=== PATIENT | female | born 1965 ===

== ENCOUNTER 2017-02-06 13:17 | Emergency (ER) | payer OTHER, MEDICARE ==
[2017-02-06 13:17] VITALS: BMI 28.3
[2017-02-06 13:21] VITALS: BP 123/67; PULSE 118; RESP 18; TEMP 99; O2SAT 98
--- NOTE | 2017-02-06 13:44 | ED PDOC ---
HPI: General Adult Time Seen by Provider: 02/06/17 13:42 Chief Complaint (Nursing): Abdominal Pain Chief Complaint (Provider): abdominal pain History Per: Patient History/Exam Limitations: no limitations Additional Complaint(s): 51yo female complaining of severe abdominal pain, nausea and diarrhea since this morning. She has chills but is unsure of fever. No vomit. Past Medical History Reviewed: Historical Data, Nursing Documentation, Vital Signs Vital Signs: Last Vital Signs Temp 99 F 02/06/17 13:19 Pulse 118 H 02/06/17 13:19 Resp 18 02/06/17 13:19 BP 123/67 02/06/17 13:19 Pulse Ox 98 02/06/17 18:41 - Medical History PMH: Anxiety, Arthritis, Asthma, COPD, Depression, Fractures, Osteoporosis Denies: Diabetes, Hepatitis, HIV, HTN, Seizures, Sexually Transmitted Disease - Surgical History Surgical History: Cholecystectomy, Tonsillectomy - Family History Family History: States: Unknown Family Hx - Immunization History Hx Tetanus Toxoid Vaccination: No Hx Influenza Vaccination: Yes Hx Pneumococcal Vaccination: No - Home Medications Home Medications: Ambulatory Orders Medication Instructions Recorded Calcium Carbonate [Calcium] 600 mg PO DAILY 05/25/16 DULoxetine [Cymbalta] 60 mg PO DAILY 05/25/16 Esomeprazole Magnesium [Nexium] 40 mg PO DAILY 05/25/16 oxyCODONE/Acetaminophen [Percocet 1 tab PO Q6 PRN 05/25/16 5/325 mg Tab] Fluticasone Nasal [Flonase] 11/30/16 Ibandronate [Boniva] 11/30/16 clonazePAM [Klonopin] 1 tab PO BID 11/30/16 Benztropine [Cogentin] 1 mg PO BID PRN #60 tab 12/04/16 Divalproex [Depakote DR] 500 mg PO BID #60 tcp 12/04/16 risperiDONE [RisperDAL Tab] 2 mg PO BID #60 tab 12/04/16 traZODone [Desyrel] 50 mg PO HS #30 tab 12/04/16 Ibuprofen [Motrin] 600 mg PO Q6H PRN #20 tab 02/06/17 - Allergies Allergies/Adverse Reactions: Allergies Allergy/AdvReac Type Severity Reaction Status Date / Time No Known Allergies Allergy Verified 11/30/16 13:19 Review of Systems ROS Statement: Except As Marked, All Systems Reviewed And Found Negative Constitutional: Positive for: Chills. Negative for: Fever Gastrointestinal: Positive for: Nausea, Abdominal Pain, Diarrhea. Negative for : Vomiting Physical Exam - Reviewed Nursing Documentation Reviewed: Yes Vital Signs Reviewed: Yes - Physical Exam Appears: Positive for: Well, Non-toxic, No Acute Distress Head Exam: Positive for: ATRAUMATIC, NORMAL INSPECTION, NORMOCEPHALIC Skin: Positive for: Warm, Dry Eye Exam: Positive for: EOMI, PERRL Cardiovascular/Chest: Positive for: Regular Rate, Rhythm Respiratory: Positive for: Normal Breath Sounds. Negative for: Rales, Rhonchi, Wheezing Gastrointestinal/Abdominal: Positive for: Soft, Tenderness (right lower quadrant mild tenderness). Negative for: Guarding, Rebound Extremity: Positive for: Normal ROM Neurologic/Psych: Positive for: Alert, Oriented - Laboratory Results Result Diagrams: 02/06/17 14:20 02/06/17 14:00 - ECG O2 Sat by Pulse Oximetry: 98 (RA) Pulse Ox Interpretation: Normal Medical Decision Making Medical Decision Makin CT abd/pel w/, Labs, morphine, zofran, Iv fluids ordered. Disposition - Clinical Impression Clinical Impression: Abdominal pain in female - Patient ED Disposition Is Patient to be Admitted: Transfer of Care - Disposition Referrals: [facility] [Outside] Disposition: Transfer of Care Disposition Time: 17:00 Condition: STABLE Prescriptions: Ibuprofen [Motrin] 600 mg PO Q6H PRN #20 tab PRN Reason: Pain, Moderate (4-7) Instructions: Abdominal Pain (ED) Patient Signed Over To: Scarlett Nava Additional Comments - Additional Comments Additional Comments: Scribe Attestation: Documented by Leroy Belle acting as a scribe for Bernard Tobin MD. Provider Scribe Attestation: All medical record entries made by the Scribe were at my direction and personally dictated by me. I have reviewed the chart and agree that the record accurately reflects my personal performance of the history, physical exam, medical decision making, and the department course for this patient. I have also personally directed, reviewed, and agree with the discharge instructions and disposition.
[2017-02-06] MEDS ORDERED: Sodium Chloride 0.9% 1,000 ML IV STA (13:47)
[2017-02-06 14:46] LABS: BASO % 0.1 % (0.0-2.0); EOS # 0.1 K/uL (0.0-0.7); EOS % 1.3 % (0.0-4.0); HEMATOCRIT 44.7 % (34.0-47.0); LYMPH # 0.7 K/uL (1.0-4.3); LYMPH % 6.6 % (20.0-40.0); MEAN CORPUSCULAR HEMOGLOBIN 28.6 pg (27.0-31.0); MEAN CORPUSCULAR HGB CONC 33.6 g/dL (33.0-37.0); MEAN PLATELET VOLUME 8.4 fl (7.2-11.7); MONO # 0.4 K/uL (0.0-0.8); NRBC % 0.1 % (0.0-0.0); PLATELET COUNT 298 K/uL (130-400); RED CELL DISTRIBUTION WIDTH 13.8 % (11.5-14.5); WHITE BLOOD COUNT 10.2 K/uL (4.8-10.8)
[2017-02-06 14:57] LABS: ALB/GLOB RATIO 1.1 (1.0-2.1); ALKALINE PHOSPHATASE 89 U/L (38-126); ALT/SGPT 39 U/L (9-52); AST/SGOT 35 U/L (14-36); BILIRUBIN,TOTAL 0.9 mg/dl (0.2-1.3); BLOOD UREA NITROGEN 24 mg/dl (7-17); CALCIUM 9.1 mg/dL (8.4-10.2); CARBON DIOXIDE 24 mmol/L (22-30); CHLORIDE 106 mmol/L (98-107); GFR AFRICAN-AMERICAN > 60; GLUCOSE,RANDOM 106 mg/dL (65-105); POTASSIUM 3.9 MMOL/L (3.6-5.0); SODIUM 144 mmol/l (132-148); TOTAL PROTEIN 7.9 G/DL (6.3-8.2)
[2017-02-06 15:41] LABS: BASOPHIL 1 % (0-2); EOSINOPHIL 3 % (0-7); NEUTROPHIL 83 % (42-75); REACTIVE LYMPHOCYTES 3 % (0-0); TOTAL CELLS COUNTED 100
[2017-02-06] MEDS ORDERED: Iohexol 350 MG/100 ML VIAL ONE (16:07)
[2017-02-06] MEDS ORDERED: Sodium Chloride 0.9% 50 ML IV ONE (16:08)
--- NOTE | 2017-02-06 16:56 | CT ---
PROCEDURE: CT Abdomen and Pelvis with contrast HISTORY: RLQ abd pain COMPARISON: None. TECHNIQUE: Contrast dose: 95 cc Omnipaque 350. Radiation dose: Total exam DLP = 885.42 mGy-cm. This CT exam was performed using one or more of the following dose reduction techniques: Automated exposure control, adjustment of the mA and/or kV according to patient size, and/or use of iterative reconstruction technique. FINDINGS: LOWER THORAX: Unremarkable. LIVER: Unremarkable. No gross lesion or ductal dilatation. GALLBLADDER AND BILE DUCTS: Status post cholecystectomy. No abnormality is seen in the gallbladder fossa. PANCREAS: Unremarkable. No gross lesion or ductal dilatation. SPLEEN: Unremarkable. ADRENALS: Mildly enlarged right adrenal gland perhaps small adenoma. Unremarkable left adrenal. KIDNEYS AND URETERS: Unremarkable. No hydronephrosis. No solid mass. VASCULATURE: Unremarkable. No aortic aneurysm. BOWEL: Unremarkable. No obstruction. No gross mural thickening. Diverticulosis without an acute inflammatory component or other associated pathologic process. APPENDIX: Normal appendix. PERITONEUM: Unremarkable. No free fluid. No free air. LYMPH NODES: Unremarkable. No enlarged lymph nodes. BLADDER: Unremarkable. REPRODUCTIVE: Unremarkable. Incidental finding(s): Postoperative findings likely related to tubal ligation. BONES: No acute fracture. OTHER FINDINGS: None. IMPRESSION: No acute findings related to/accounting for the clinical presentation. Additional benign and/or incidental findings described above.
--- NOTE | 2017-02-06 17:38 | ED PDOC ---
- Laboratory Results Result Diagrams: 02/06/17 14:20 02/06/17 14:00 - ECG O2 Sat by Pulse Oximetry: 98 (RA) Pulse Ox Interpretation: Normal - CT Scan/US CT A/P w/PO and IV contrast Other Rad Studies (CT/US): Read By Radiologist, Radiology Report Reviewed Other Rad Interpretation: see MDM Medical Decision Making Medical Decision Makin:00 Patient endorsed over to me by Bernard Tobin MD, pending CT report, reevaluation and final disposition. 17:35 CT reports reviewed. Pt with h/o bilateral oopherectomies. FINDINGS: LOWER THORAX: Unremarkable. LIVER: Unremarkable. No gross lesion or ductal dilatation. GALLBLADDER AND BILE DUCTS: Status post cholecystectomy. No abnormality is seen in the gallbladder fossa. PANCREAS: Unremarkable. No gross lesion or ductal dilatation. SPLEEN: Unremarkable. ADRENALS: Mildly enlarged right adrenal gland perhaps small adenoma. Unremarkable left adrenal. KIDNEYS AND URETERS: Unremarkable. No hydronephrosis. No solid mass. VASCULATURE: Unremarkable. No aortic aneurysm. BOWEL: Unremarkable. No obstruction. No gross mural thickening. Diverticulosis without an acute inflammatory component or other associated pathologic process. APPENDIX: Normal appendix. PERITONEUM: Unremarkable. No free fluid. No free air. LYMPH NODES: Unremarkable. No enlarged lymph nodes. BLADDER: Unremarkable. REPRODUCTIVE: Unremarkable. Incidental finding(s): Postoperative findings likely related to tubal ligation. BONES: No acute fracture. OTHER FINDINGS: None. IMPRESSION: No acute findings related to/accounting for the clinical presentation. Additional benign and/or incidental findings described above. 17:37 Upon provider reevaluation patient is feeling better, is medically stable, and requires no further treatment in the ED at this time. Patient will be discharged home with Rx for Motrin 600mg. Counseling was provided and all questions were answered regarding results of ED workup, diagnosis and need for follow up with the referred clinic. There is agreement to discharge plan. Return if symptoms persist or worsen. Clinical Impression: abdominal pain in female Scribe Attestation: Documented by Ellie Cabello, acting as a scribe for Scarlett Nava MD. Provider Scribe Attestation: All medical record entries made by the Scribe were at my direction and personally dictated by me. I have reviewed the chart and agree that the record accurately reflects my personal performance of the history, physical exam, medical decision making, and the department course for this patient. I have also personally directed, reviewed, and agree with the discharge instructions and disposition. Disposition - Clinical Impression Clinical Impression: Abdominal pain in female - POA Present On Arrival: None - Disposition Referrals: [facility] [Outside] Disposition: Routine/Home Disposition Time: 17:37 Condition: STABLE Prescriptions: Ibuprofen [Motrin] 600 mg PO Q6H PRN #20 tab PRN Reason: Pain, Moderate (4-7) Instructions: Abdominal Pain (ED)
== END 2017-02-06 19:30 | disposition home or self-care (01) ==
LOC: H.ER 13:17
DX: R10.31 Right lower quadrant pain (principal); R19.7 Diarrhea, unspecified; R11.0 Nausea; F41.9 Anxiety disorder, unspecified; J44.9 Chronic obstructive pulmonary disease, unspecified
CPT/HCPCS: 74177; 80053; 81025; 85025; 96374; 96375; 99282; J1885; J2270; J2405; J7040; Q9967

== ENCOUNTER 2017-07-13 12:26 | Inpatient (IN) | payer MEDICAID, OTHER ==
[2017-07-13 12:26] VITALS: BMI 28.3
[2017-07-13] MEDS ORDERED: Sodium Chloride 0.9% 1,000 ML IV STA (13:13)
--- NOTE | 2017-07-13 13:17 | ED PDOC ---
HPI: General Adult Time Seen by Provider: 07/13/17 12:54 Chief Complaint (Nursing): Abdominal Pain Chief Complaint (Provider): Head injury History Per: Patient History/Exam Limitations: no limitations Onset/Duration Of Symptoms: Days (2 days) Current Symptoms Are (Timing): Still Present Additional Complaint(s): Pt. states she was working and fell. Unclear why. Hurt the left side of her head. Has pain there since. Saw her pcp yesterday and told to come to the ED. Here today. Feels l eye blurry. No numbness, tingles, neck pain. No fever, cough, chest pain, dyspnea. Has low back pain, no incontinence or constipation. Weakness all over. No abd pain. 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 States she has been falling frequently. Speech is off per pt. NIHSS Stroke Scale - Date/Time Evaluation Performed Date Performed: 07/13/17 Time Performed: 16:06 When Was NIHSS Performed: Re-evaluation - How Severe is the Stroke Level of Consciousness: 0=Alert LOC to Questions: 0=Both comments correct LOC to commands: 0=Obeys both correctly Best Gaze: 0=Normal Visual: 0=No visual loss Facial: 0=Normal Motor Arm - Left: 0=No drift Motor Arm - Right: 0=No drift Motor Leg - Left: 0=No drift Motor Leg - Right: 0=No drift Limb Ataxia: 0=Absent Sensory: 0=Normal Best Language: 0=No aphasia Dysarthia: 1=Mild to moderate slurring Extinction & Inattention (Neglect): 0=Normal, no object Score: 1 rTPA Inclusion/Exclusion - Refusal of Treatment Patient Refused Treatment: No - Inclusion Criteria for Altepase Patient is 18 years or Older: Yes The Clinical Diagnosis of Ischemic Stroke That is Causing a Potentially Disabling Neurological Deficit: No Time of Onset is Well Established to be Less Than 270 Minute Before Treatment Would Begin: No Risk/Benefit Discussed With Patient/Family Member Present: No Past Medical History Reviewed: Nursing Documentation, Vital Signs Vital Signs: Last Vital Signs Temp 98.7 F 07/13/17 12:31 Pulse 103 H 07/13/17 12:31 Resp 16 07/13/17 12:31 BP 164/58 H 07/13/17 12:31 Pulse Ox 97 07/13/17 16:08 - Medical History PMH: Anxiety, Arthritis, Asthma, COPD, Depression, Fractures, Osteoporosis Denies: Diabetes, Hepatitis, HIV, HTN, Seizures, Sexually Transmitted Disease Other PMH: frontal lobe tumor - Surgical History Surgical History: Cholecystectomy, Tonsillectomy - Family History Family History: States: Unknown Family Hx - Social History Current smoker - smoking cessation education provided: No Alcohol: None Drugs: Denies - Immunization History Hx Tetanus Toxoid Vaccination: No Hx Influenza Vaccination: Yes Hx Pneumococcal Vaccination: No - Home Medications Home Medications: Ambulatory Orders Medication Instructions Recorded Calcium Carbonate [Calcium] 600 mg PO DAILY 05/25/16 DULoxetine [Cymbalta] 60 mg PO DAILY 05/25/16 Esomeprazole Magnesium [Nexium] 40 mg PO DAILY 05/25/16 oxyCODONE/Acetaminophen [Percocet 1 tab PO Q6 PRN 05/25/16 5/325 mg Tab] Fluticasone Nasal [Flonase] 11/30/16 Ibandronate [Boniva] 11/30/16 clonazePAM [Klonopin] 1 tab PO BID 11/30/16 Benztropine [Cogentin] 1 mg PO BID PRN #60 tab 12/04/16 Divalproex [Depakote DR] 500 mg PO BID #60 tcp 12/04/16 risperiDONE [RisperDAL Tab] 2 mg PO BID #60 tab 12/04/16 traZODone [Desyrel] 50 mg PO HS #30 tab 12/04/16 Ibuprofen [Motrin] 600 mg PO Q6H PRN #20 tab 02/06/17 - Allergies Allergies/Adverse Reactions: Allergies Allergy/AdvReac Type Severity Reaction Status Date / Time No Known Allergies Allergy Verified 11/30/16 13:19 Review of Systems ROS Statement: Except As Marked, All Systems Reviewed And Found Negative Musculoskeletal: Positive for: Back Pain Neurological: Positive for: Weakness, Change in Speech, Headache Physical Exam - Reviewed Nursing Documentation Reviewed: Yes Vital Signs Reviewed: Yes - Physical Exam Appears: Positive for: No Acute Distress Head Exam: Positive for: NORMOCEPHALIC. Negative for: ATRAUMATIC (tender L frontal forehead mild; no hematoma) Skin: Positive for: Normal Color, Warm, DRY Eye Exam: Positive for: EOMI, Normal appearance, PERRL ENT: Positive for: Normal ENT Inspection. Negative for: Nasal Congestion, Pharyngeal Erythema Neck: Positive for: Normal, Painless ROM, Supple Cardiovascular/Chest: Positive for: Regular Rate, Rhythm Respiratory: Positive for: CNT, Normal Breath Sounds Gastrointestinal/Abdominal: Positive for: Normal Exam, Bowel Sounds, Soft. Negative for: Tenderness Back: Positive for: Normal Inspection. Negative for: L CVA Tenderness, R CVA Tenderness Extremity: Negative for: Normal ROM (pain to lower back on movement of legs.), Tenderness (no leg tenderness), Pedal Edema, Calf Tenderness, Swelling Neurologic/Psych: Positive for: Alert, finance and administration manager II-XII, Oriented, Motor/Sensory Deficits (4/5 strength to all extremities), Other (athralgia of speech and slurring off and on.). Negative for: Facial Droop - Laboratory Results Result Diagrams: 07/13/17 13:40 07/13/17 13:40 Interpretation Of Abn Labs: no acute - ECG ECG: Positive for: Interpreted By Me, Viewed By Me ECG Rhythm: Positive for: Normal QRS, Normal ST Segment, Sinus Rhythm O2 Sat by Pulse Oximetry: 97 Pulse Ox Interpretation: Normal - Radiology X-Ray: Read By Radiologist X-Ray Interpretation: No Acute Disease - CT Scan/US head, face, neck Other Rad Studies (CT/US): Read By Radiologist Other Rad Interpretation: no acute - Progress ED Course And Treament: 1606: Stable. AAOx3. Pain free. Spoke with Gonzalo. Will admit for concussion. Pt. speaking more fluently. Spoke with Dr. Nguyen. Will consult. No additional tx at this time. Disposition - Clinical Impression Clinical Impression: Concussion, Head injury - Patient ED Disposition Is Patient to be Admitted: Yes Counseled Patient/Family Regarding: Studies Performed, Diagnosis - Disposition Disposition Time: 16:12 Condition: FAIR - Pt Status Changed To: Hospital Disposition Of: Observation - POA Present On Arrival: Falls Or Trauma
[2017-07-13 14:06] LABS: BASO % 0.5 % (0.0-2.0); EOS # 0.2 K/uL (0.0-0.7); EOS % 2.1 % (0.0-4.0); LYMPH # 2.6 K/uL (1.0-4.3); LYMPH % 29.7 % (20.0-40.0); MEAN CELL VOLUME 87.1 fl (81.0-99.0); MEAN CORPUSCULAR HEMOGLOBIN 28.8 pg (27.0-31.0); MEAN CORPUSCULAR HGB CONC 33.1 g/dL (33.0-37.0); MEAN PLATELET VOLUME 8.4 fl (7.2-11.7); MONO # 0.5 K/uL (0.0-0.8); MONO % 6.1 % (0.0-10.0); NEUT # 5.5 K/uL (1.8-7.0); NEUT % 61.6 % (50.0-75.0); RED CELL DISTRIBUTION WIDTH 13.8 % (11.5-14.5); WHITE BLOOD COUNT 8.9 K/uL (4.8-10.8)
[2017-07-13 14:20] LABS: ALB/GLOB RATIO 1.3 (1.0-2.1); ALKALINE PHOSPHATASE 74 U/L (38-126); ALT/SGPT 28 U/L (9-52); AST/SGOT 25 U/L (14-36); BILIRUBIN,TOTAL 0.4 mg/dl (0.2-1.3); BLOOD UREA NITROGEN 18 mg/dl (7-17); CALCIUM 9.2 mg/dL (8.4-10.2); CARBON DIOXIDE 26 mmol/L (22-30); CHLORIDE 105 mmol/L (98-107); GFR AFRICAN-AMERICAN > 60; GLUCOSE,RANDOM 89 mg/dL (65-105); POTASSIUM 3.9 MMOL/L (3.6-5.0); SODIUM 139 mmol/l (132-148); TOTAL PROTEIN 6.9 G/DL (6.3-8.2)
[2017-07-13 14:22] LABS: PARTIAL THROMBOPLASTIN TIME 34.1 Seconds (25.6-37.1)
--- NOTE | 2017-07-13 14:29 | RAD ---
HISTORY: weakness COMPARISON: No prior. FINDINGS: LUNGS: The lungs are clear. PLEURA: No significant pleural effusion identified, no pneumothorax apparent. CARDIOVASCULAR: Normal. OSSEOUS STRUCTURES: No significant abnormalities. VISUALIZED UPPER ABDOMEN: Normal. OTHER FINDINGS: None. IMPRESSION: No active pulmonary disease.
--- NOTE | 2017-07-13 14:31 | RAD ---
PROCEDURE: Radiographs of the Lumbar Spine. HISTORY: back pain COMPARISON: No prior. FINDINGS: BONES: There is normal alignment of the lumbar vertebral bodies. Lumbar lordosis is maintained. Vertebral bodies are normal in height. Bone mineralization is normal. There is no acute fracture, spondylolysis or spondylolisthesis. DISC SPACES: The disc heights are maintained. OTHER FINDINGS: There are no pathologic soft tissue calcifications. Both sacroiliac joints are normal. Surgical clips in the right upper quadrant are related to prior cholecystectomy. IMPRESSION: No acute fracture, spondylolysis or spondylolisthesis.
--- NOTE | 2017-07-13 14:38 | CT ---
PROCEDURE: CT HEAD WITHOUT CONTRAST. HISTORY: fall COMPARISON: None available. TECHNIQUE: Axial computed tomography images were obtained through the head/brain without intravenous contrast. Radiation dose: Total exam DLP = 869.81 mGy-cm. This CT exam was performed using one or more of the following dose reduction techniques: Automated exposure control, adjustment of the mA and/or kV according to patient size, and/or use of iterative reconstruction technique. FINDINGS: HEMORRHAGE: No intracranial hemorrhage. BRAIN: No mass effect or edema. No atrophy or chronic microvascular ischemic changes. VENTRICLES: Unremarkable. No hydrocephalus. CALVARIUM: Unremarkable. PARANASAL SINUSES: Unremarkable as visualized. No significant inflammatory changes. MASTOID AIR CELLS: Unremarkable as visualized. No inflammatory changes. OTHER FINDINGS: None. IMPRESSION: No evidence of acute intracranial hemorrhage intracranial collection mass effect or midline shift.
--- NOTE | 2017-07-13 14:58 | CT ---
PROCEDURE: CT MAXILLOFACIAL BONES WITHOUT CONTRAST HISTORY: facial pain COMPARISON: None TECHNIQUE: Contiguous axial CT images of the maxillofacial bones were obtained. Coronal and sagittal reformats were generated. Radiation dose: Total exam DLP = 754.58 mGy-cm. This CT exam was performed using one or more of the following dose reduction techniques: Automated exposure control, adjustment of the mA and/or kV according to patient size, and/or use of iterative reconstruction technique. FINDINGS: NASAL BONES: Unremarkable. ORBITS: Unremarkable. PARANASAL SINUSES/ MASTOIDS: Mild mucosal thickening noted at the sphenoid sinus. No evidence of acute sinusitis. MAXILLA: Streak artifact from tooth implants / denture somewhat limits the evaluation of the MANDIBLE/ TEMPOROMANDIBULAR JOINTS: There is an impeded tooth at the right mandible. SKULL BASE: Unremarkable. TEMPORAL BONES: Middle ears and mastoid grossly unremarkable. OTHER FINDINGS: None. IMPRESSION: No CT evidence of acute pathology at the maxillofacial region. Impeded tooth noted at the right mandibular bone. . Mild mucosal thickening in the right sphenoid sinus. No evidence of sinusitis. Streak artifact from patient's tooth and denture somewhat limits the evaluation of the maxillary bone.
--- NOTE | 2017-07-13 15:12 | CT ---
PROCEDURE: CT Cervical Spine without contrast HISTORY: Neck pain COMPARISON: None available. TECHNIQUE: Axial computed tomography images were obtained of the cervical spine without the use of intravenous contrast. Coronal and sagittal reformatted images were created and reviewed. Radiation dose: Total exam DLP = 470.85 mGy-cm. This CT exam was performed using one or more of the following dose reduction techniques: Automated exposure control, adjustment of the mA and/or kV according to patient size, and/or use of iterative reconstruction technique. FINDINGS: VERTEBRAE: No fracture. Normal alignment. No destructive bony lesion. Straightening of the cervical spine which could be position or due to muscle spasm. DISCS/SPINAL CANAL/NEURAL FORAMINA: [id number] degenerative disc changes. Osteophyte disc bulge complex seen at C5-C6 and C6-C7 associated with mild spinal stenosis. Disc heights narrowing seen at C5-C6 and to a less degree at C6-C7. PARASPINAL SOFT TISSUES: Unremarkable. OTHER FINDINGS: None. IMPRESSION: No evidence of acute fracture or subluxation. No evidence of destructive bony lesion. [id number] degenerative disc changes more prominent at C5-C6 and C6-C7 associated with small posterior osteophyte disc bulge complex which resulting in mild spinal stenosis.
--- NOTE | 2017-07-13 18:42 | MRI ---
PROCEDURE: MRI BRAIN WITHOUT CONTRAST HISTORY: STROKE SUB CORICAL COMPARISON: Noncontrast head CT from in 07/13/2017 TECHNIQUE: Multiplanar, multisequence MR images of the brain were obtained without intravenous contrast enhancement. FINDINGS: HEMORRHAGE: None DWI: No evidence of an acute or early subacute infarction. BRAIN PARENCHYMA: There are several small T2/FLAIR hyperintense foci in the subcortical frontal and parietal white matter. There is no mass, mass effect or abnormal extra-axial fluid collection. The midline sagittal structures are normal. VENTRICLES: There is mild global parenchymal volume loss and proportionate enlargement of the ventricles and cortical sulci, advanced for the patient's age. CRANIUM: There is normal bone marrow signal pattern. ORBITS: Grossly unremarkable. PARANASAL SINUSES/MASTOIDS: Predominantly clear. VASCULAR SYSTEM: There are normal signal voids in the larger intracranial arteries. . OTHER FINDINGS: None. IMPRESSION: 1. No acute intracranial abnormality. 2. Mild subcortical supratentorial white matter changes are strictly nonspecific. The differential considerations include early chronic microangiopathic changes, migraine headache effect, gliosis, Lyme disease, vasculitis and demyelinating disease including multiple sclerosis. Clinical correlation and follow-up is advised.
--- NOTE | 2017-07-13 19:59 | CON ---
DATE: LOCATION: ER bed 17 ATTENDING PHYSICIAN: Vannesa Lynn MD REASON FOR CONSULTATION: Status post fall and slurred speech. HISTORY OF PRESENT ILLNESS: The patient is 51-year-old right-handed female was brought to the [facility] with history of fall two days with no reason. While she was at home in the middle of the day she fell on her left side, she hurt her left hip, thigh, and left side of the face. She denies loss of consciousness. No history of involuntary movements at the scene. As per the patient no bowel or bladder incontinence. However, she had missed two different fall in the past year ago. She could not recall why it was happened. However, injury is resulting with structural damage to her bone in her both foot. PAST MEDICAL HISTORY: Depression, anxiety attack, hypertension, osteoporosis, and arthritis. ALLERGIES: NO KNOWN ALLERGIES. PERSONAL HISTORY: She smokes pack of cigarettes for three days. Denies any alcohol use. MEDICATION: Chronic pain on Neurontin, magnesium, Cymbalta, and risperidone. REVIEW OF SYSTEMS: A 16-point system been reviewed. From neurologic point of view slurred speech. PHYSICAL EXAMINATION VITAL SIGNS: 124/67, mean arterial pressure of 93, respirations 16, temperature afebrile. NECK: Supple. No carotid bruits. HEART: Sounds regular. CHEST: Fair entry. EXTREMITIES: No edema in legs. NEUROLOGIC: Mental status examination: She is awake, alert, and oriented to person, place, and time. No retrograde amnesia, no antegrade amnesia. No sign of depression. No sign of suicidal ideation. CRANIAL NERVE EXAMINATION: Visual field is intact. Pupils reactive to light. Extraocular movement normal. No nystagmus. No facial sensory deficit. No facial asymmetry. Hearing is normal. Tongue is midline. Good gag. MOTOR EXAMINATION: Outstretched hand with eyes closed, no drift is noted. Power symmetric on either side. DEEP TENDON REFLEXES: Biceps, brachialis, and triceps 2+0. Both knees are 2+. Both ankles are 2+. Plantars are downgoing. SENSORY EXAMINATION: Grossly intact. No cortical sensory loss. COORDINATION: Cvblwn-iapa-gsswiy test is intact. Gait deferred at this time because the patient does not want to get off the bed. WORKUP: CT of the head reviewed by me no structural or pathology is noted. No acute stroke is seen. BLOOD WORKUP: WBC 8.9, hemoglobin 13.2, hematocrit 40.0, and platelets 292. PT 11.4, INR 1.1, PTT 34.1. Sodium 139, potassium 3.9, chloride 105, bicarbonate 26, BUN 18, creatinine 0.6, GFR more than 60. Calcium 9.2. Liver functions are normal. CONCLUSION: Upon reviewing her history and neurological examination, Mrs. Yris Isbell has been presenting with history of head trauma associated with slurred speech as per the history as well as per ER attended. However, the current examination does not show any long tract sign or any focal cause for her problem. Posttraumatic headache is present. The patient is also told that she did have MRI of the brain in the past. She was told that she had some tumor in her head, was seen by filter tender jelly. There is no clear evidence as per exam showing any long tract signs are present. RECOMMENDATION: 1. On MRI of the brain without contrast to rule out any ischemic process with space occupying lesion. 2. Carotid Doppler to rule out stenosis. 3. EEG to rule out any paroxysmal activities. 4. Echocardiogram to rule out any cardiogenic stroke. 5. Blood workup as per the order. 5. The patient should be on antiplatelet and blood workup as per the order. The patient should be kept on fall precautions. The patient will be followed while she is in the hospital. Samuel Nguyen MD MTDLori
[2017-07-13] MEDS: ESOMEPRAZOLE MAGNESIUM PO SCH (21:25)
[2017-07-13] MEDS ORDERED: Patient's Own Med (Calcium Carbonate/Vitamin D3 [Caltrate 600 Plus D3 Tablet] 1 TAB) PO SCH (22:00)
[2017-07-14 06:50] LABS: BASO # 0.1 K/uL (0.0-0.2); BASO % 0.8 % (0.0-2.0); EOS # 0.3 K/uL (0.0-0.7); EOS % 3.5 % (0.0-4.0); HEMATOCRIT 41.1 % (34.0-47.0); LYMPH # 2.8 K/uL (1.0-4.3); LYMPH % 35.7 % (20.0-40.0); MEAN CELL VOLUME 86.4 fl (81.0-99.0); MEAN CORPUSCULAR HEMOGLOBIN 28.5 pg (27.0-31.0); MEAN PLATELET VOLUME 8.4 fl (7.2-11.7); MONO # 0.5 K/uL (0.0-0.8); MONO % 6.5 % (0.0-10.0); NEUT # 4.2 K/uL (1.8-7.0); NEUT % 53.5 % (50.0-75.0); RED CELL DISTRIBUTION WIDTH 13.5 % (11.5-14.5); WHITE BLOOD COUNT 7.8 K/uL (4.8-10.8)
[2017-07-14 07:01] LABS: ALB/GLOB RATIO 1.2 (1.0-2.1); ALKALINE PHOSPHATASE 71 U/L (38-126); ALT/SGPT 27 U/L (9-52); AST/SGOT 22 U/L (14-36); BILIRUBIN,TOTAL 0.5 mg/dl (0.2-1.3); BLOOD UREA NITROGEN 17 mg/dl (7-17); CALCIUM 8.9 mg/dL (8.4-10.2); CARBON DIOXIDE 26 mmol/L (22-30); CHLORIDE 108 mmol/L (98-107); GFR AFRICAN-AMERICAN > 60; GLUCOSE,RANDOM 85 mg/dL (65-105); POTASSIUM 4.1 MMOL/L (3.6-5.0); SODIUM 142 mmol/l (132-148); TOTAL PROTEIN 6.6 G/DL (6.3-8.2)
[2017-07-14 08:28] LABS: THYROID STIMULATING HORMONE 1.03 mIU/ML (0.46-4.68)
--- NOTE | 2017-07-14 08:41 | CARD ---
APPROVED REPORT EKG Measurement Heart [id number] <Conclusion> Normal sinus rhythm Normal ECG
[2017-07-14] MEDS: Calcium-Vit D 500 mg-200 Units Tab UD PO SCH (08:58)
--- NOTE | 2017-07-14 09:12 | CP.PCM.HP ---
History of Present Illness - History of Present Illness History of Present Illness: pt admitted for fall of unkn origin, states falls alot. hit head and had slurring of speech in er. at present speech is clear. pt is a/ox4. pending neuro workup-neuro note appriciated. pendign eeg, carotid dopplar. mri/ct/xr all reviewed. pt offers no complaints except mild headache at present. bw reviewed. Present on Admission - Present on Admission Any Indicators Present on Admission: No Review of Systems - Neurological Neurological: As Per HPI, Frequent Falls, Headaches Past Patient History - Infectious Disease Hx of Infectious Diseases: None - Past Medical History & Family History Past Medical History?: Yes - Past Social History Smoking Status: Light Smoker < 10 Cigarettes Daily - CARDIAC Hx Cardiac Disorders: No - PULMONARY Hx Respiratory Disorders: Yes Hx Asthma: Yes Hx Chronic Obstructive Pulmonary Disease (COPD): Yes - NEUROLOGICAL Hx Migraine: Yes (As per patient) Hx Seizures: No - HEMATOLOGICAL/ONCOLOGICAL Hx Human Immunodeficiency Virus (HIV): No - MUSCULOSKELETAL/RHEUMATOLOGICAL Hx Musculoskeletal Disorders: Yes Hx Arthritis: Yes Hx Back Pain: Yes Hx Falls: Yes Hx Osteoarthritis: Yes Hx Osteoporosis: Yes - GASTROINTESTINAL Hx Gastroesophageal Reflux: Yes - GENITOURINARY/GYNECOLOGICAL Hx Sexually Transmitted Disorders: No - PSYCHIATRIC Hx Psychophysiologic Disorder: Yes Hx Anxiety: Yes Hx Depression: Yes Hx Substance Use: No - SURGICAL HISTORY Hx Cholecystectomy: Yes Hx Tonsillectomy: Yes Other/Comment: As per patient: Bilateral Ovarian removal (oophorectomy). Right foot toe and ankle surgery (screws in toes; rods in ankle-2014). Left foot and ankle surgery (rods in ankles- 2016) - ANESTHESIA Hx Anesthesia: Yes Hx Anesthesia Reactions: No Meds Allergies/Adverse Reactions: Allergies Allergy/AdvReac Type Severity Reaction Status Date / Time No Known Allergies Allergy Verified 11/30/16 13:19 Physical Exam - Constitutional Appears: Well, Non-toxic, No Acute Distress - Head Exam Head Exam: ATRAUMATIC, NORMAL INSPECTION, NORMOCEPHALIC - Eye Exam Eye Exam: EOMI, Normal appearance, PERRL Pupil Exam: NORMAL ACCOMODATION, PERRL - ENT Exam ENT Exam: Mucous Membranes Moist, Normal Exam - Neck Exam Neck exam: Positive for: Normal Inspection - Respiratory Exam Respiratory Exam: Clear to Auscultation Bilateral, NORMAL BREATHING PATTERN - Cardiovascular Exam Cardiovascular Exam: REGULAR RHYTHM, RRR, +S1, +S2 - GI/Abdominal Exam GI & Abdominal Exam: Normal Bowel Sounds, Soft. absent: Tenderness - Extremities Exam Extremities exam: Positive for: full ROM, normal capillary refill, normal inspection, pedal pulses present - Back Exam Back exam: FULL ROM, NORMAL INSPECTION - Neurological Exam Neurological exam: Alert, CN II-XII Intact, Normal Gait, Oriented x3, Reflexes Normal - Psychiatric Exam Psychiatric exam: Normal Affect, Normal Mood - Skin Skin Exam: Dry, Intact, Normal Color, Warm Results - Vital Signs Recent Vital Signs: Last Vital Signs Temp 97.9 F 07/14/17 08:00 Pulse 84 07/14/17 08:00 Resp 18 07/14/17 08:00 BP 115/74 07/14/17 08:00 Pulse Ox 97 07/14/17 08:00 - Labs Result Diagrams: 07/14/17 05:00 07/14/17 05:00 Labs: Laboratory Results - last 24 hr 07/13/17 07/13/17 07/13/17 05:00 05:00 13:28 WBC RBC Hgb Hct MCV MCH MCHC RDW Plt Count MPV Neut % (Auto) Lymph % (Auto) [place] % (Auto) Eos % (Auto) Baso % (Auto) Neut # Lymph # [place] # Eos # Baso # ESR 15 PT INR APTT Sodium Potassium Chloride Carbon Dioxide Anion Gap BUN Creatinine Est GFR ( Amer) Est GFR (Non-Af Amer) POC Glucose (mg/dL) 85 Random Glucose Calcium Total Bilirubin AST ALT Alkaline Phosphatase Troponin I Total Protein Albumin Globulin Albumin/Globulin Ratio Triglycerides 104 Cholesterol 174 LDL Cholesterol Direct 111 HDL Cholesterol 35 TSH 3rd Generation 1.03 07/13/17 07/13/17 07/13/17 13:40 13:40 13:40 WBC 8.9 RBC 4.59 Hgb 13.2 Hct 40.0 MCV 87.1 D MCH 28.8 MCHC 33.1 RDW 13.8 Plt Count 292 MPV 8.4 Neut % (Auto) 61.6 Lymph % (Auto) 29.7 [place] % (Auto) 6.1 Eos % (Auto) 2.1 Baso % (Auto) 0.5 Neut # 5.5 Lymph # 2.6 [place] # 0.5 Eos # 0.2 Baso # 0.0 ESR PT 11.5 INR 1.1 APTT 34.1 Sodium 139 Potassium 3.9 Chloride 105 Carbon Dioxide 26 Anion Gap 13 BUN 18 H Creatinine 0.6 L Est GFR ( Amer) > 60 Est GFR (Non-Af Amer) > 60 POC Glucose (mg/dL) Random Glucose 89 Calcium 9.2 Total Bilirubin 0.4 AST 25 ALT 28 Alkaline Phosphatase 74 Troponin I < 0.0120 Total Protein 6.9 Albumin 3.9 Globulin 3.0 Albumin/Globulin Ratio 1.3 Triglycerides Cholesterol LDL Cholesterol Direct HDL Cholesterol TSH 3rd Generation 07/14/17 07/14/17 05:00 05:00 WBC 7.8 RBC 4.76 Hgb 13.6 Hct 41.1 MCV 86.4 MCH 28.5 MCHC 33.0 RDW 13.5 Plt Count 273 MPV 8.4 Neut % (Auto) 53.5 Lymph % (Auto) 35.7 [place] % (Auto) 6.5 Eos % (Auto) 3.5 Baso % (Auto) 0.8 Neut # 4.2 Lymph # 2.8 [place] # 0.5 Eos # 0.3 Baso # 0.1 ESR PT INR APTT Sodium 142 Potassium 4.1 Chloride 108 H Carbon Dioxide 26 Anion Gap 12 BUN 17 Creatinine 0.6 L Est GFR ( Amer) > 60 Est GFR (Non-Af Amer) > 60 POC Glucose (mg/dL) Random Glucose 85 Calcium 8.9 Total Bilirubin 0.5 AST 22 ALT 27 Alkaline Phosphatase 71 Troponin I Total Protein 6.6 Albumin 3.6 Globulin 3.0 Albumin/Globulin Ratio 1.2 Triglycerides Cholesterol LDL Cholesterol Direct HDL Cholesterol TSH 3rd Generation Assessment & Plan (1) DVT prophylaxis Assessment and Plan: scd and aehose ambualtion lvoenox if admitted over 24h Status: Acute (2) Concussion Assessment and Plan: neuro work up=eeg, carotid dopplar mri and ct noted. pendign final neuro clearance for dc no defiicits atpresent treat pain for headache Status: Acute (3) Recurrent falls Assessment and Plan: physical therapy Status: Acute Decision To Admit - Pt Status Changed To: Hospital Disposition Of: Observation - . Bed Request Type: Telemetry Admitting Physician: Adrianna Estrella
--- NOTE | 2017-07-14 12:17 | CARD ---
APPROVED REPORT EXAM: Two-dimensional and M-mode echocardiogram with Doppler and color Doppler. Other Information Quality : GoodRhythm : NSR INDICATION Chest Pain 2D DIMENSIONS IVSd1.18 (0.7-1.1cm)Aortic Root (2D)2.79 (2.0-3.7cm) LVDd4.45 (3.9-5.9cm)LVOT Diameter2.63 (1.8-2.4cm) PWd0.78 (0.7-1.1cm)IVSs1.53 (0.8-1.2cm) LVDs3.24 (2.5-4.0cm)FS (%) 27.2 % PWs1.07 (0.8-1.2cm) M-Mode DIMENSIONS Left Atrium (MM)3.26 (2.5-4.0cm)IVSd0.93 (0.7-1.1cm) Aortic Root2.88 (2.2-3.7cm)LVDd4.93 (4.0-5.6cm) Aortic Cusp Exc.1.50 (1.5-2.0cm)PWd0.90 (0.7-1.1cm) IVSs1.26 cmFS (%) 24 % LVDs3.75 (2.0-3.8cm)PWs0.97 cm Mitral Valve MV E Gcawdhmo80.6cm/sMV DECEL [id number] A Zblqnwol54.9cm/s MV [id number]/A ratio2.4MVA (PHT)2.79cm2 TDI Lateral E' Peak V7.33cm/sMedial E' Peak V8.64cm/sE/Lateral E'8.5 E/Medial E'7.2 Pulmonary Valve PV Peak Velocity0.0cm/s LEFT VENTRICLE The left ventricle is normal size. There is normal left ventricular wall thickness. The left ventricular function is normal. The left ventricular ejection fraction is within the normal range. The Ejection Fraction is 60-65%. There is normal LV segmental wall motion. The left ventricular diastolic function is normal. No left ventricle thrombus noted on this study. There is no mass noted in the left ventricle. RIGHT VENTRICLE The right ventricle is normal size. There is normal right ventricular wall thickness. The right ventricular systolic function is normal. ATRIA The left atrium size is normal. The right atrium size is normal. The interatrial septum is intact with no evidence for an atrial septal defect. AORTIC VALVE The aortic valve is normal in structure and function. No aortic regurgitation is present. There is no aortic valvular stenosis. There is no aortic valvular vegetation. MITRAL VALVE The mitral valve is normal in structure and function. There is no evidence of mitral valve prolapse. There is no mitral valve stenosis. There is no mitral valve regurgitation noted. TRICUSPID VALVE The tricuspid valve is normal in structure and function. There is no tricuspid valve regurgitation noted. There is no tricuspid valve prolapse or vegetation. There is no tricuspid valve stenosis. PULMONIC VALVE The pulmonary valve is normal in structure and function. There is no pulmonic valvular regurgitation. There is no pulmonic valvular stenosis. GREAT VESSELS The aortic root is normal in size. The IVC is normal in size and collapses >50% with inspiration. PERICARDIAL EFFUSION The pericardium appears normal. There is no pleural effusion. <Conclusion> The left ventricle is normal size. The left ventricular function is normal. The left ventricular ejection fraction is within the normal range. The Ejection Fraction is 60-65%.
[2017-07-14] MEDS: Apap-Butalbital-Caffeine 325-50-40mg Tab PO PRN (13:57)
[2017-07-14] MEDS: ESOMEPRAZOLE MAGNESIUM PO SCH (21:19)
[2017-07-15 00:13] VITALS: RESP 18
[2017-07-15 05:36] LABS: HOMOCYSTEINE 7.1 umol/L (<10.4)
[2017-07-15] MEDS: Calcium-Vit D 500 mg-200 Units Tab UD PO SCH (09:04)
--- NOTE | 2017-07-15 10:31 | CP.PCM.PN ---
Subjective - Date & Time of Evaluation Date of Evaluation: 07/15/17 Time of Evaluation: 10:30 - Subjective Subjective: pt doing well, no complaints except mild headahce. no numbness/tingling/ weakness. no f/c, n/v/d bw pending pending carotid dopplar for dc cleare dby dr menendez pending dopplar Objective - Vital Signs/Intake and Output Vital Signs (last 24 hours): Temp Pulse Resp BP Pulse Ox 98.4 F 85 18 101/62 99 07/15/17 08:15 07/15/17 08:15 07/15/17 08:15 07/15/17 08:15 07/15/17 08:15 - Medications Medications: Current Medications Acetaminophen/Butalbital/Caffeine (Fioricet) 1 tab PO Q8H PRN PRN Reason: Migraine headache Last Admin: 07/14/17 13:57 Dose: 1 tab Aspirin (Ecotrin) 81 mg PO DAILY [facility] Last Admin: 07/15/17 09:05 Dose: 81 mg Calcium/Vitamin D (Oyster Shell Calcium/Vitamin D 500 Mg-200 Iu) 1 tab PO DAILY [facility] Last Admin: 07/15/17 09:04 Dose: 1 tab Clonazepam (Klonopin) 1 mg PO HS [facility] Last Admin: 07/14/17 21:19 Dose: 1 mg Duloxetine HCl (Cymbalta) 60 mg PO HS [facility] Last Admin: 07/14/17 21:19 Dose: 60 mg Gabapentin (Neurontin) 300 mg PO HS [facility] Last Admin: 07/14/17 21:19 Dose: 300 mg Home Med (Esomeprazole Magnesium [Nexium 24hr]) 1 cap PO HS [facility] Last Admin: 07/14/17 21:19 Dose: 1 cap Home Med (Meloxicam [Mobic]) 15 mg PO HS [facility] Last Admin: 07/14/17 21:19 Dose: 15 mg Ibuprofen (Motrin Tab) 600 mg PO Q6 PRN PRN Reason: Pain, moderate (4-7) Last Admin: 07/14/17 18:47 Dose: 600 mg Nicotine (Nicoderm Cq) 1 patch TD DAILY [facility] Last Admin: 07/15/17 09:04 Dose: 1 patch - Labs Labs: 07/14/17 05:00 07/14/17 05:00 PT 11.5 Seconds (9.8-13.1) 07/13/17 13:40 INR 1.1 (0.9-1.2) 07/13/17 13:40 APTT 34.1 Seconds (25.6-37.1) 07/13/17 13:40 - Constitutional Appears: Well, Non-toxic, No Acute Distress - Head Exam Head Exam: ATRAUMATIC, NORMAL INSPECTION, NORMOCEPHALIC - Eye Exam Eye Exam: EOMI, Normal appearance, PERRL Pupil Exam: NORMAL ACCOMODATION, PERRL - ENT Exam ENT Exam: Mucous Membranes Moist, Normal Exam - Neck Exam Neck Exam: Full ROM, Normal Inspection. absent: Lymphadenopathy - Respiratory Exam Respiratory Exam: Clear to Ausculation Bilateral, NORMAL BREATHING PATTERN - Cardiovascular Exam Cardiovascular Exam: REGULAR RHYTHM, RRR, +S1, +S2. absent: Murmur - GI/Abdominal Exam GI & Abdominal Exam: Soft, Normal Bowel Sounds. absent: Tenderness - Extremities Exam Extremities Exam: Full ROM, Normal Capillary Refill, Normal Inspection. absent : Joint Swelling, Pedal Edema - Back Exam Back Exam: NORMAL INSPECTION - Neurological Exam Neurological Exam: Alert, Awake, CN II-XII Intact, Normal Gait, Oriented x3 - Psychiatric Exam Psychiatric exam: Normal Affect, Normal Mood - Skin Skin Exam: Dry, Intact, Normal Color, Warm Assessment and Plan (1) DVT prophylaxis Status: Acute (2) Concussion Status: Acute (3) Recurrent falls Status: Acute - Assessment and Plan (Free Text) Assessment: (1) DVT prophylaxis Assessment and Plan: scd and aehose ambualtion lvoenox if admitted over 24h Status: Acute (2) Concussion Assessment and Plan: neuro work up=eeg, carotid dopplar mri and ct noted. cleared pending carotid dopplar no defiicits atpresent treat pain for headache Status: Acute (3) Recurrent falls Assessment and Plan: physical therapy offered/refused tcu/zahra Status: Acute states went downstairs yesterday to smoke.
[2017-07-15 12:13] VITALS: BP 107/73; PULSE 93; TEMP 98.1; O2SAT 97
[2017-07-15] MEDS: Apap-Butalbital-Caffeine 325-50-40mg Tab PO PRN (13:24)
--- NOTE | 2017-07-15 14:16 | US ---
PROCEDURE: Duplex ultrasound of the carotid and vertebral arteries. HISTORY: fall, unknown origin, r/o cva COMPARISON: None available. TECHNIQUE: Grayscale and duplex Doppler evaluation of the cervical carotid and vertebral arteries were performed. The common carotid, carotid bifurcations and cervical ICA and proximal ECA were evaluated. The vertebral arteries were evaluated for gross patency and direction. FINDINGS: RIGHT CAROTID ARTERIES: Common Carotid Artery: Normal. Maximal flow velocity of 87.3 cm/s. Carotid Bifurcation: Normal. Internal Carotid Artery:Normal. Maximal flow velocity of 70.2 cm/s. External Carotid Artery (proximal branches): Normal. Maximal flow velocity of 93 cm/s. ICA/CCA Ratio: 0.8 LEFT CAROTID ARTERIES: Common Carotid Artery: Normal. Maximal flow velocity of 86.8 cm/s. Carotid Bifurcation: Normal. Internal Carotid Artery:Normal. Maximal flow velocity of 103.4 cm/s. External Carotid Artery (proximal branches): Normal. Maximal flow velocity of 62.5 cm/s. ICA/CCA Ratio: 1.2 VERTEBRAL ARTERIES: Right Vertebral Artery: Patent. Antegrade flow. Left Vertebral Artery: Patent. Antegrade flow. OTHER FINDINGS: None. IMPRESSION: Bilateral tortuous internal carotid arteries. No evidence of hemodynamically significant stenosis in the common and internal carotid arteries at the neck. Patent bilateral vertebral arteries with normal blood flow.
--- NOTE | 2017-07-15 20:21 | CP.PCM.DIS ---
Provider - Provider Date of Admission: 07/14/17 19:45 Attending physician: Adrianna Estrella MD Time Spent in preparation of Discharge (in minutes): 15 Diagnosis - Discharge Diagnosis (1) DVT prophylaxis Status: Acute (2) Concussion Status: Acute (3) Recurrent falls Status: Acute Hospital Course - Lab Results Lab Results: Most Recent Lab Values WBC 7.8 K/uL (4.8-10.8) 07/14/17 05:00 RBC 4.76 Mil/uL (3.80-5.20) 07/14/17 05:00 Hgb 13.6 g/dL (12.0-16.0) 07/14/17 05:00 Hct 41.1 % (34.0-47.0) 07/14/17 05:00 MCV 86.4 fl (81.0-99.0) 07/14/17 05:00 MCH 28.5 pg (27.0-31.0) 07/14/17 05:00 MCHC 33.0 g/dL (33.0-37.0) 07/14/17 05:00 RDW 13.5 % (11.5-14.5) 07/14/17 05:00 Plt Count 273 K/uL (130-400) 07/14/17 05:00 MPV 8.4 fl (7.2-11.7) 07/14/17 05:00 Neut % (Auto) 53.5 % (50.0-75.0) 07/14/17 05:00 Lymph % (Auto) 35.7 % (20.0-40.0) 07/14/17 05:00 [place] % (Auto) 6.5 % (0.0-10.0) 07/14/17 05:00 Eos % (Auto) 3.5 % (0.0-4.0) 07/14/17 05:00 Baso % (Auto) 0.8 % (0.0-2.0) 07/14/17 05:00 Neut # 4.2 K/uL (1.8-7.0) 07/14/17 05:00 Lymph # 2.8 K/uL (1.0-4.3) 07/14/17 05:00 [place] # 0.5 K/uL (0.0-0.8) 07/14/17 05:00 Eos # 0.3 K/uL (0.0-0.7) 07/14/17 05:00 Baso # 0.1 K/uL (0.0-0.2) 07/14/17 05:00 ESR 15 mm/hr (0-20) 07/13/17 05:00 PT 11.5 Seconds (9.8-13.1) 07/13/17 13:40 INR 1.1 (0.9-1.2) 07/13/17 13:40 APTT 34.1 Seconds (25.6-37.1) 07/13/17 13:40 Sodium 142 mmol/l (132-148) 07/14/17 05:00 Potassium 4.1 MMOL/L (3.6-5.0) 07/14/17 05:00 Chloride 108 mmol/L (98-107) H 07/14/17 05:00 Carbon Dioxide 26 mmol/L (22-30) 07/14/17 05:00 Anion Gap 12 (10-20) 07/14/17 05:00 BUN 17 mg/dl (7-17) 07/14/17 05:00 Creatinine 0.6 mg/dL (0.7-1.2) L 07/14/17 05:00 Est GFR ( Amer) > 60 07/14/17 05:00 Est GFR (Non-Af Amer) > 60 07/14/17 05:00 POC Glucose (mg/dL) 85 mg/dL (65-110) 07/13/17 13:28 Random Glucose 85 mg/dL (65-105) 07/14/17 05:00 Hemoglobin A1c 5.5 % (4.2-6.5) 07/13/17 05:00 Calcium 8.9 mg/dL (8.4-10.2) 07/14/17 05:00 Total Bilirubin 0.5 mg/dl (0.2-1.3) 07/14/17 05:00 AST 22 U/L (14-36) 07/14/17 05:00 ALT 27 U/L (9-52) 07/14/17 05:00 Alkaline Phosphatase 71 U/L (38-126) 07/14/17 05:00 Troponin I < 0.0120 ng/mL (0.00-0.120) 07/13/17 13:40 Total Protein 6.6 G/DL (6.3-8.2) 07/14/17 05:00 Albumin 3.6 g/dL (3.5-5.0) 07/14/17 05:00 Globulin 3.0 gm/dL (2.2-3.9) 07/14/17 05:00 Albumin/Globulin Ratio 1.2 (1.0-2.1) 07/14/17 05:00 Triglycerides 104 mg/DL (0-149) 07/13/17 05:00 Cholesterol 174 mg/dL (0-199) 07/13/17 05:00 LDL Cholesterol Direct 111 mg/dL (0-129) 07/13/17 05:00 HDL Cholesterol 35 MG/DL (30-70) 07/13/17 05:00 Homocysteine 7.1 umol/L ( <10.4) 07/13/17 05:00 TSH 3rd Generation 1.03 mIU/ML (0.46-4.68) 07/13/17 05:00 Prolactin 7.1 ng/mL (3.0-18.9) 07/13/17 05:00 Discharge Exam - Head Exam Head Exam: ATRAUMATIC, NORMAL INSPECTION, NORMOCEPHALIC Discharge Plan - Follow Up Plan Condition: FAIR Disposition: HOME/ ROUTINE Instructions: Head Injury (DC) Additional Instructions: follow up with your primary md on monday. for any recurrence of symptoms or falls, return to emergency. cleared by neuro for dc. mri and carotid doplar noted and d/c w/ neuro outpt eeg results. offered na refused zahra/tcu by this provider and rn. ambulatory w/ steady gait final dx- fall , unkn etiology, concussion. rte dprn, meds per med rec
== END 2017-07-15 15:45 | disposition home or self-care (01) | DRG 90 ==
LOC: H.ER 12:26 → H.ERHOLD 16:15 → H.TEL 18:47 → OBSVTOIN 07-14 19:45
PROVIDERS: ADMIT Family Medicine; ATTEND Family Medicine
DX: S06.0X0A Concussion without loss of consciousness, initial encounter (principal); I10 Essential (primary) hypertension; W19.XXXA Unspecified fall, initial encounter; F41.1 Generalized anxiety disorder; F17.210 Nicotine dependence, cigarettes, uncomplicated; Y93.9 Activity, unspecified; Y92.9 Unspecified place or not applicable; G44.309 Post-traumatic headache, unspecified, not intractable; J44.9 Chronic obstructive pulmonary disease, unspecified; K21.9 Gastro-esophageal reflux disease without esophagitis; M81.0 Age-related osteoporosis without current pathological fracture; R29.6 Repeated falls; Z90.49 Acquired absence of other specified parts of digestive tract; F32.9 Major depressive disorder, single episode, unspecified; F41.9 Anxiety disorder, unspecified; G43.909 Migraine, unspecified, not intractable, without status migrainosus; M19.90 Unspecified osteoarthritis, unspecified site; M54.9 Dorsalgia, unspecified; Z91.81 History of falling

== ENCOUNTER 2017-10-25 19:32 | Emergency (ER) | payer OTHER ==
[2017-10-25 19:33] VITALS: BMI 28.3
[2017-10-25 19:37] VITALS: RESP 16
[2017-10-25] MEDS ORDERED: Sodium Chloride 0.9% 1,000 ML IV STA (20:46)
--- NOTE | 2017-10-25 20:50 | ED PDOC ---
HPI: CCC, URI, Sore Throat Time Seen by Provider: 10/25/17 20:09 Chief Complaint (Nursing): Flu-like Symptoms Chief Complaint (Provider): flu-like symptoms History Per: Patient History/Exam Limitations: no limitations Onset/Duration Of Symptoms: Days (3) Current Symptoms Are (Timing): Still Present Location Of Pain: Throat, Sinus/es Associated Symptoms: Fever, Chills, Sore Throat, Cough, Myalgias, Nasal Congestion Additional History Per: Patient Additional Complaint(s): 51 y/o female presents with flu-like symptoms x 3 days. Patient reports headache, fever, bodyaches, nasal congestion, cough, sore throat. Patient taking Dayquil and Nyquil with little relief. Denies dizziness, neck pain, vomiting, changes in bowel movements, recent travel. Patient states grandson has been sick with same. Past Medical History Reviewed: Historical Data, Nursing Documentation, Vital Signs Vital Signs: Last Vital Signs Temp 99.0 F 10/25/17 23:06 Pulse 92 H 10/25/17 23:06 Resp 16 10/25/17 23:06 BP 101/60 10/25/17 23:06 Pulse Ox 98 10/25/17 23:06 - Medical History PMH: Anxiety, Arthritis, Asthma, COPD, Depression, Fractures, Migraine (As per patient), Osteoporosis Denies: Diabetes, Hepatitis, HIV, HTN, Seizures, Sexually Transmitted Disease - Surgical History Surgical History: Cholecystectomy, Tonsillectomy - Family History Family History: States: Unknown Family Hx - Immunization History Hx Tetanus Toxoid Vaccination: No Hx Influenza Vaccination: Yes Hx Pneumococcal Vaccination: No - Home Medications Home Medications: Ambulatory Orders Medication Instructions Recorded Acetaminophen/Butalbital/Caf 1 tab PO Q8H PRN 07/13/17 [Fioricet] Calcium Carbonate/Vitamin D3 1 tab PO HS 07/13/17 [Caltrate 600 Plus D3 Tablet] DULoxetine [Cymbalta] 60 mg PO HS 07/13/17 Esomeprazole Magnesium [Nexium 1 cap PO HS 07/13/17 24Hr] Gabapentin [Neurontin] 300 mg PO HS 07/13/17 Meloxicam [Mobic] 15 mg PO HS 07/13/17 clonazePAM [Klonopin] 1 mg PO HS 07/13/17 Fluticasone Nasal [Flonase] 1 actuation NS BID #1 bottle 10/25/17 Ibuprofen [Motrin Tab] 1 tab PO Q6 PRN #20 tab 10/25/17 Promethazine DM [Phenergan DM 5 ml PO Q6 PRN #1 bottle 10/25/17 Syrup] - Allergies Allergies/Adverse Reactions: Allergies Allergy/AdvReac Type Severity Reaction Status Date / Time No Known Allergies Allergy Verified 10/25/17 19:35 Review of Systems ROS Statement: Except As Marked, All Systems Reviewed And Found Negative Constitutional: Positive for: Fever, Chills, Weakness ENT: Positive for: Nose Discharge, Nose Congestion Respiratory: Positive for: Cough Physical Exam - Reviewed Nursing Documentation Reviewed: Yes Vital Signs Reviewed: Yes - Physical Exam Appears: Positive for: Well, Non-toxic, Uncomfortable Head Exam: Positive for: ATRAUMATIC, NORMAL INSPECTION, NORMOCEPHALIC Skin: Positive for: Normal Color Eye Exam: Positive for: Normal appearance ENT: Positive for: TM Is/Are (clear bilaterally), Pharyngeal Erythema. Negative for: Tonsillar Exudate, Tonsillar Swelling Cardiovascular/Chest: Positive for: Regular Rate, Rhythm Respiratory: Positive for: Rhonchi Gastrointestinal/Abdominal: Positive for: Normal Exam Back: Positive for: Normal Inspection Extremity: Positive for: Normal ROM Neurologic/Psych: Positive for: Alert, Oriented - Laboratory Results Result Diagrams: 10/25/17 21:05 10/25/17 21:05 - ECG O2 Sat by Pulse Oximetry: 97 - Progress ED Course And Treament: labs, flu, strep, chest xray, ibuprofen PO, IV fluids On re-eval, patient states she is feeling better. Patient educated on findings, discharged with rx ibuprofen, promethazine DM, flonase. ADvised fluids, rest. Follow up PMD 2-3 days. Return precautions given. Disposition - Clinical Impression Clinical Impression: Viral illness - Patient ED Disposition Is Patient to be Admitted: No Counseled Patient/Family Regarding: Studies Performed, Diagnosis, Need For Followup, Rx Given - Disposition Disposition: Routine/Home Disposition Time: 23:35 Condition: IMPROVED Prescriptions: Fluticasone Nasal [Flonase] 1 actuation NS BID #1 bottle Ibuprofen [Motrin Tab] 1 tab PO Q6 PRN #20 tab PRN Reason: Fever >100.4 F Promethazine DM [Phenergan DM Syrup] 5 ml PO Q6 PRN #1 bottle PRN Reason: Cough Instructions: Viral Syndrome (ED) Forms: [employer] (Citizen Of [place])
[2017-10-25 21:26] LABS: BASO % 0.3 % (0.0-2.0); EOS # 0.2 K/uL (0.0-0.7); EOS % 2.7 % (0.0-4.0); HEMOGLOBIN 13.9 g/dL (12.0-16.0); LYMPH # 1.9 K/uL (1.0-4.3); LYMPH % 20.9 % (20.0-40.0); MEAN CELL VOLUME 87.1 fl (81.0-99.0); MEAN CORPUSCULAR HEMOGLOBIN 28.6 pg (27.0-31.0); MEAN CORPUSCULAR HGB CONC 32.8 g/dL (33.0-37.0); MEAN PLATELET VOLUME 8.2 fl (7.2-11.7); MONO # 0.8 K/uL (0.0-0.8); MONO % 8.2 % (0.0-10.0); NEUT # 6.3 K/uL (1.8-7.0); NEUT % 67.9 % (50.0-75.0); RBC 4.88 Mil/uL (3.80-5.20); RED CELL DISTRIBUTION WIDTH 13.3 % (11.5-14.5); WHITE BLOOD COUNT 9.3 K/uL (4.8-10.8)
[2017-10-25 21:33] LABS: ALB/GLOB RATIO 1.1 (1.0-2.1); ALBUMIN 3.9 g/dL (3.5-5.0); ALT/SGPT 60 U/L (9-52); AST/SGOT 48 U/L (14-36); BLOOD UREA NITROGEN 9 mg/dl (7-17); CALCIUM 8.9 mg/dL (8.4-10.2); GFR AFRICAN-AMERICAN > 60; GFR NON-AFRICAN AMERICAN > 60
[2017-10-25 21:43] LABS: VENOUS BLOOD GAS BASE EXCESS 4.1 mmol/L (0.0-2.0); VENOUS BLOOD GAS PCO2 41 mmHg (40-60); VENOUS BLOOD GAS PO2 35 mm/Hg (30-55); VENOUS BLOOD PH 7.45 (7.32-7.43)
[2017-10-25 23:07] VITALS: BP 101/60; PULSE 92; TEMP 99
[2017-10-25 23:36] VITALS: O2SAT 97
--- NOTE | 2017-10-26 10:08 | RAD ---
HISTORY: fever, cough COMPARISON: 07/13/2017 TECHNIQUE: Chest PA and lateral FINDINGS: LUNGS: No active pulmonary disease. PLEURA: No significant pleural effusion identified. No pneumothorax apparent. CARDIOVASCULAR: Normal. OSSEOUS STRUCTURES: No significant abnormalities. VISUALIZED UPPER ABDOMEN: Normal. OTHER FINDINGS: None. IMPRESSION: No active disease.
== END 2017-10-25 23:53 | disposition home or self-care (01) ==
LOC: H.ER 19:32
DX: B34.9 Viral infection, unspecified (principal); F32.9 Major depressive disorder, single episode, unspecified; F41.9 Anxiety disorder, unspecified; J44.9 Chronic obstructive pulmonary disease, unspecified
CPT/HCPCS: 71046; 80053; 81025; 82803; 85025; 87040; 87070; 87430; 87804; 96360; 96361; 99283; J7040

== ENCOUNTER 2018-03-31 20:15 | Emergency (ER) | payer OTHER ==
[2018-03-31 20:17] VITALS: BMI 28.3
[2018-03-31 21:37] LABS: BASO # 0.1 K/uL (0.0-0.2); EOS # 0.3 K/uL (0.0-0.7); HEMOGLOBIN 14.4 g/dL (12.0-16.0); LYMPH # 3.3 K/uL (1.0-4.3); LYMPH % 37.5 % (20.0-40.0); MEAN CELL VOLUME 86.1 fl (81.0-99.0); MEAN CORPUSCULAR HGB CONC 33.7 g/dL (33.0-37.0); MEAN PLATELET VOLUME 8.7 fl (7.2-11.7); MONO # 0.5 K/uL (0.0-0.8); MONO % 5.6 % (0.0-10.0); NEUT # 4.7 K/uL (1.8-7.0); NEUT % 52.9 % (50.0-75.0); NRBC % 0.1 % (0.0-0.0); RBC 4.96 Mil/uL (3.80-5.20); RED CELL DISTRIBUTION WIDTH 13.8 % (11.5-14.5); WHITE BLOOD COUNT 8.9 K/uL (4.8-10.8)
[2018-03-31 21:48] LABS: ALB/GLOB RATIO 1.1 (1.0-2.1); ALBUMIN 3.8 g/dL (3.5-5.0); ALT/SGPT 42 U/L (9-52); AST/SGOT 32 U/L (14-36); BLOOD UREA NITROGEN 14 mg/dl (7-17); CALCIUM 9.2 mg/dL (8.4-10.2); GFR AFRICAN-AMERICAN > 60; GFR NON-AFRICAN AMERICAN > 60
[2018-03-31 21:50] LABS: ACETAMINOPHEN < 10.0 ug/ml (10.0-30.0); SALICYLATE < 1.0 mg/dl
--- NOTE | 2018-03-31 23:06 | ED PDOC ---
HPI: General Adult Time Seen by Provider: 03/31/18 20:28 Chief Complaint (Nursing): Substance Abuse History Per: Patient History/Exam Limitations: no limitations Current Symptoms Are (Timing): Still Present Additional Complaint(s): 52-year-old female brought in by ambulance for unresponsive syncopal episodes and right foot pain. According to patient, she called ambulance because of her foot pain. When ambulance arrived, patient passed out. No seizure activity. Ambulance crew thought she stopped breathing, thus, administered BiPAP. No chest compressions. Pt recovered after few seconds. Ambulance crew thought patient overdosed. Pt denies overdose or taking pain medication aside from fiorocet for headache. Pt reports right foot pain. Reports she is s/p right foot surgery and has foot pain. Patient reports calling the foot surgeon and was told to go to ER. Pt reports yesterday she took 4 tablets of percocets and 4 tablets of clonazepam. States no suicidal attempt, but did it intentionally for pain. No SI or HI. Reports not eating or drinking anything, which caused her to pass out. (-) headache, (-) fever, (-) chest pain, (-) vomiting. instructional technology specialist: Dr. Castillo PMD: Shaik Marinelli Past Medical History Reviewed: Historical Data, Nursing Documentation, Vital Signs Vital Signs: Last Vital Signs Temp 98.4 F 04/01/18 10:55 Pulse 77 04/01/18 13:23 Resp 18 04/01/18 13:23 BP 116/65 04/01/18 13:23 Pulse Ox 98 04/01/18 13:23 - Medical History PMH: Anxiety, Arthritis, Asthma, COPD, Depression, Fractures, Migraine (As per patient), Osteoporosis Denies: Diabetes, Hepatitis, HIV, HTN, Seizures, Sexually Transmitted Disease - Surgical History Surgical History: Cholecystectomy, Tonsillectomy - Family History Family History: States: Unknown Family Hx - Immunization History Hx Tetanus Toxoid Vaccination: No Hx Influenza Vaccination: Yes Hx Pneumococcal Vaccination: No - Home Medications Home Medications: Ambulatory Orders Medication Instructions Recorded Acetaminophen/Butalbital/Caf 1 tab PO Q8H PRN 07/13/17 [Fioricet] Calcium Carbonate/Vitamin D3 1 tab PO HS 07/13/17 [Caltrate 600 Plus D3 Tablet] DULoxetine [Cymbalta] 60 mg PO HS 07/13/17 Esomeprazole Magnesium [Nexium 1 cap PO HS 07/13/17 24Hr] Gabapentin [Neurontin] 300 mg PO HS 07/13/17 Meloxicam [Mobic] 15 mg PO HS 07/13/17 clonazePAM [Klonopin] 1 mg PO HS 07/13/17 Fluticasone Nasal [Flonase] 1 actuation NS BID #1 bottle 10/25/17 Ibuprofen [Motrin Tab] 1 tab PO Q6 PRN #20 tab 10/25/17 Promethazine DM [Phenergan DM 5 ml PO Q6 PRN #1 bottle 10/25/17 Syrup] - Allergies Allergies/Adverse Reactions: Allergies Allergy/AdvReac Type Severity Reaction Status Date / Time No Known Allergies Allergy Verified 03/31/18 20:23 Review of Systems ROS Statement: Except As Marked, All Systems Reviewed And Found Negative Constitutional: Negative for: Fever Cardiovascular: Negative for: Chest Pain Gastrointestinal: Negative for: Vomiting Musculoskeletal: Positive for: Foot Pain (right) Neurological: Negative for: Headache Physical Exam - Reviewed Nursing Documentation Reviewed: Yes Vital Signs Reviewed: Yes - Physical Exam Appears: Positive for: Well, No Acute Distress Head Exam: Positive for: ATRAUMATIC, NORMAL INSPECTION, NORMOCEPHALIC Skin: Positive for: Normal Color, Warm, Dry Eye Exam: Positive for: EOMI, Normal appearance, PERRL ENT: Positive for: Normal ENT Inspection Neck: Positive for: Normal Cardiovascular/Chest: Positive for: Regular Rate, Rhythm Respiratory: Positive for: Normal Breath Sounds. Negative for: Respiratory Distress Gastrointestinal/Abdominal: Positive for: Normal Exam Back: Positive for: Normal Inspection Extremity: Positive for: Other (Right foot surgical wound: (+) External Hardware in first and fourth toe (-) discharge, (-) swelling) Neurologic/Psych: Positive for: Alert, Oriented (X 3) - Laboratory Results Result Diagrams: 03/31/18 21:32 03/31/18 21:32 - ECG O2 Sat by Pulse Oximetry: 96 (RA) Pulse Ox Interpretation: Normal Medical Decision Making Medical Decision Making: Impression(s): Foot Pain, syncope, prescription abuse, overdose 24 hours ago. Differentials include, but not limited to: Vasovagal syncope, substance abuse post op foot pain. Plan: - CT Head w/o Contrast - EKG - Acetaminophen - Alcohol Serum - CMP - Drug Screen, Urine - Salicylate Stat - Troponin I - Podiatry Consult - Crisis Evaluation - ED Urine Dipstick - CBC (with differentials) - Ativan 2 mg IM - 1: 1 Observation - Left Foot X-Ray Scribe Attestation: Documented by Chun Mcqueen, acting as a scribe for Brandon Singleton M.D Provider Scribe Attestation: All medical record entries made by the Scribe were at my direction and personally dictated by me. I have reviewed the chart and agree that the record accurately reflects my personal performance of the history, physical exam, medical decision making, and the department course for this patient. I have also personally directed, reviewed, and agree with the discharge instructions and disposition. Time: [address] RESULTS FINDINGS: Brain: Minimal atrophy. No intracranial hemorrhage. No mass. No definite edema. Ventricles: No hydrocephalus. Bones/joints: No acute fracture. Soft tissues: Unremarkable. Vasculature: Minimal atherosclerotic disease of intracranial arteries. Sinuses: Scattered minimal to mild mucosal thickening. Mastoid air cells: No mastoid effusion. Orbits: Unremarkable as visualized. IMPRESSION: 1. No definite acute intracranial abnormality. 2. Incidental/non-acute findings are described above. Thank you for allowing us to participate in the care of your patient. Dictated and Authenticated by: Ritesh Damian MD 04/01/2018 12:37 AM Eastern Time ([place] & [place]) Scribe Attestation: Documented by Eyal Bolivar, acting as a scribe for Dr. Brandon Singleton MD. Provider Scribe Attestation: All medical record entries made by the Scribe were at my direction and personally dictated by me. I have reviewed the chart and agree that the record accurately reflects my personal performance of the medical decision making for this patient. I have also personally directed, reviewed, and agree with the discharge instructions and disposition. Disposition - Clinical Impression Clinical Impression: Substance abuse, Post-op pain - Patient ED Disposition Is Patient to be Admitted: Transfer of Care Counseled Patient/Family Regarding: Studies Performed, Diagnosis - Disposition Referrals: [facility] [Outside] Zen Castillo MD [Staff Provider] - Disposition: Transfer of Care Disposition Time: 07:00 Condition: STABLE Additional Instructions: Followup with Dr Castillo and [facility] as directed. Take medications for pain only as directed. Return to ER for any worse or new symptoms or concern for self. Instructions: Postoperative Pain (DC), Drug Abuse Treatment, Managing Pain After Surgery Forms: [employer] (Turkmen) Patient Signed Over To: Duong Carvajal III
--- NOTE | 2018-03-31 23:11 | CP.PCM.CON ---
History of Present Illness - History of Present Illness History of Present Illness: 52 y/o female with PMHx of osteoporosis, anxiety and depression seen in ED regarding right foot injury. Pt comes into the ED via ambulance after being found unresponsive approx 15 min after calling the ambulance for her right foot pain. Pt states she recently had surgery done with Dr. Castillo and bumped the foot last night, causing significant pain. States she took Percocet for the pain , and continued to take the pills. Says she is not sure but thinks she was trying to overdose secondary to her pain. At present, pt is not currently having any pain in the foot. States she spoke to Dr. Castillo earlier today who recommended that she come to the ED for further evaluation. Denies any numbness , tingling or burning in the foot at this time, but states she had some tingling by the 5th toe last night after hitting the foot. Denies F/C/N/V/CP/ SOB. PSH: multiple foot and ankle surgeries B/L, bilateral oophorectomy All: NKDA Social: Lives at home with boyfriend. Admits to social EtOH; cigarette smoker (8 -10 cigs/day); denies illicit drug use Review of Systems - Review of Systems All systems: reviewed and no additional remarkable complaints except (per HPI) Past Patient History - Infectious Disease Hx of Infectious Diseases: None - Past Medical History & Family History Past Medical History?: Yes - Past Social History Smoking Status: Light Smoker < 10 Cigarettes Daily - CARDIAC Hx Hypertension: No - PULMONARY Hx Asthma: Yes Hx Chronic Obstructive Pulmonary Disease (COPD): Yes - NEUROLOGICAL Hx Migraine: Yes (As per patient) Hx Seizures: No - HEMATOLOGICAL/ONCOLOGICAL Hx Human Immunodeficiency Virus (HIV): No - MUSCULOSKELETAL/RHEUMATOLOGICAL Hx Arthritis: Yes Hx Fractures: Yes Hx Osteoporosis: Yes - GASTROINTESTINAL Hx Gastroesophageal Reflux: Yes - GENITOURINARY/GYNECOLOGICAL Hx Sexually Transmitted Disorders: No - PSYCHIATRIC Hx Anxiety: Yes Hx Depression: Yes - SURGICAL HISTORY Hx Cholecystectomy: Yes Hx Tonsillectomy: Yes - ANESTHESIA Hx Anesthesia: Yes Hx Anesthesia Reactions: No Meds Allergies/Adverse Reactions: Allergies Allergy/AdvReac Type Severity Reaction Status Date / Time No Known Allergies Allergy Verified 03/31/18 20:23 Physical Exam - Constitutional Appears: Well, Non-toxic, No Acute Distress - Extremities Exam Additional comments: Right lower extremity focused exam: Vasc: DP/PT pulses palpable 2/4. Temperature gradient warm to cool. Minimal localized edema noted to digits 2 and 5, within normal limits of postoperative swelling. CFT < 3 sec to all digits Derm: Surgical incision sites noted to dorsum of 2nd digit and dorsal 5th metatarsal extending distally to dorsum of 5th digit. Sutures are intact with no signs of dehiscence noted. Skin edges are well coapted. No drainage, no sarahy incision erythema, no malodor, no purulence, no fluctuance, no cellulitis. Neuro: Protective sensation grossly intact Ortho: Mild tenderness to palpation of dorsum of 2nd and 5th toes. K-wire fixation noted to 2nd and 5th digit hammertoe repair sites. - Neurological Exam Neurological exam: Alert, Oriented x3 - Psychiatric Exam Psychiatric exam: Normal Affect, Normal Mood Results - Vital Signs Recent Vital Signs: Last Vital Signs Temp 98.5 F 03/31/18 20:23 Pulse 96 H 03/31/18 20:23 Resp 16 03/31/18 20:23 BP 119/103 H 03/31/18 20:23 Pulse Ox 96 03/31/18 23:05 - Labs Result Diagrams: 03/31/18 21:32 03/31/18 21:32 Labs: Laboratory Results - last 24 hr 03/31/18 03/31/18 03/31/18 20:26 21:32 21:32 WBC RBC Hgb Hct MCV MCH MCHC RDW Plt Count MPV Neut % (Auto) Lymph % (Auto) [place] % (Auto) Eos % (Auto) Baso % (Auto) Neut # (Auto) Lymph # (Auto) [place] # (Auto) Eos # (Auto) Baso # (Auto) Sodium 142 Potassium 3.8 Chloride 103 Carbon Dioxide 27 Anion Gap 16 BUN 14 Creatinine 0.7 Est GFR ( Amer) > 60 Est GFR (Non-Af Amer) > 60 POC Glucose (mg/dL) 83 Random Glucose 89 Calcium 9.2 Total Bilirubin 0.7 AST 32 ALT 42 Alkaline Phosphatase 89 Troponin I < 0.0120 Total Protein 7.2 Albumin 3.8 Globulin 3.4 Albumin/Globulin Ratio 1.1 Salicylates < 1.0 Acetaminophen < 10.0 L Alcohol, Quantitative < 10 03/31/18 21:32 WBC 8.9 RBC 4.96 Hgb 14.4 Hct 42.7 MCV 86.1 MCH 29.0 MCHC 33.7 RDW 13.8 Plt Count 341 MPV 8.7 Neut % (Auto) 52.9 Lymph % (Auto) 37.5 [place] % (Auto) 5.6 Eos % (Auto) 3.0 Baso % (Auto) 1.0 Neut # (Auto) 4.7 Lymph # (Auto) 3.3 [place] # (Auto) 0.5 Eos # (Auto) 0.3 Baso # (Auto) 0.1 Sodium Potassium Chloride Carbon Dioxide Anion Gap BUN Creatinine Est GFR ( Amer) Est GFR (Non-Af Amer) POC Glucose (mg/dL) Random Glucose Calcium Total Bilirubin AST ALT Alkaline Phosphatase Troponin I Total Protein Albumin Globulin Albumin/Globulin Ratio Salicylates Acetaminophen Alcohol, Quantitative Assessment & Plan - Assessment and Plan (Free Text) Assessment: 52 y/o female 10 days s/p right foot 2nd and 5th digit hammertoe repair and Tailor's bunionectomy with right foot pain secondary to trauma Plan: Pt seen and evaluated in ED Discussed with attending Dr. Anna Velasco foot x-rays reveal good alignment at surgical sites, K-wire fixation intact, no acute osseous changes Surgical sites cleaned with saline and dressed with xeroform, DSD, and YENNI bandage New surgical shoe dispensed for protected weight bearing Pt is stable from podiatry standpoint Pt advised to follow up with Dr. Castillo in his office within 1 week of hospital discharge
--- NOTE | 2018-04-01 00:37 | CT ---
EXAM: CT Head Without Intravenous Contrast CLINICAL HISTORY: 52 years old, female; Signs and symptoms; Dizziness; Patient HX: HX substance abuse. Suicidal ideation TECHNIQUE: Axial computed tomography images of the head/brain without intravenous contrast. All CT scans at this facility use one or more dose reduction techniques, viz.: automated exposure control; ma/kV adjustment per patient size (including targeted exams where dose is matched to indication; i.e. head); or iterative reconstruction technique. Coronal and sagittal reformatted images were created and reviewed. COMPARISON: CT - HEAD W/O CONTRAST 2017-07-13 14:17 FINDINGS: Brain: Minimal atrophy. No intracranial hemorrhage. No mass. No definite edema. Ventricles: No hydrocephalus. Bones/joints: No acute fracture. Soft tissues: Unremarkable. Vasculature: Minimal atherosclerotic disease of intracranial arteries. Sinuses: Scattered minimal to mild mucosal thickening. Mastoid air cells: No mastoid effusion. Orbits: Unremarkable as visualized. IMPRESSION: 1. No definite acute intracranial abnormality. 2. Incidental/non-acute findings are described above.
[2018-04-01 05:57] VITALS: RESP 18
--- NOTE | 2018-04-01 07:07 | ED PDOC ---
- Laboratory Results Result Diagrams: 03/31/18 21:32 03/31/18 21:32 - ECG O2 Sat by Pulse Oximetry: 98 Medical Decision Making Medical Decision Making: received at 7am pending repeat EKG and medical clearance. Podiatry saw patient overnight. Likely screening for involuntary commitment from [facility]. [facility] screen determined not committable involuntarily. Patient will be discharged to follow up with nutrition aides teacher at [facility]. Disposition - Clinical Impression Clinical Impression: Substance abuse, Post-op pain - Disposition Referrals: [facility] [Outside] Zen Castillo MD [Staff Provider] - Disposition Time: 12:52 Condition: STABLE Additional Instructions: Followup with Dr Castillo and [facility] as directed. Take medications for pain only as directed. Return to ER for any worse or new symptoms or concern for self. Instructions: Postoperative Pain (DC), Drug Abuse Treatment, Managing Pain After Surgery Forms: [employer] (Vietnamese)
--- NOTE | 2018-04-01 08:49 | RAD ---
PROCEDURE: Right Foot Radiographs. HISTORY: foot surgery pain COMPARISON: None. FINDINGS: BONES: Postsurgical changes of the the 1st metatarsal, 2nd metatarsal head, mid/distal 5th metatarsal with trans phalangeal pin fixation of the 2nd and 5th digits. JOINTS: Unremarkable. SOFT TISSUES: Normal. OTHER FINDINGS: None. IMPRESSION: Postsurgical changes of the 1st, 2nd and 5th digits as described above.
[2018-04-01 10:11] LABS: BARBITURATES, UR POSITIVE (NEGATIVE); BENZODIAZEPINES, UR POSITIVE (NEGATIVE); OPIATES, UR NEGATIVE (NEGATIVE); PHENCYCLIDINE, UR NEGATIVE (NEGATIVE)
[2018-04-01 10:57] VITALS: BP 116/65; PULSE 77; TEMP 98.4
[2018-04-01 20:15] VITALS: O2SAT 96
--- NOTE | 2018-04-02 11:43 | CARD ---
APPROVED REPORT EKG Measurement Heart [id number] [place] [id number] <Conclusion> Normal sinus rhythm Nonspecific T wave abnormality Abnormal ECG
--- NOTE | 2018-04-02 11:50 | CARD ---
APPROVED REPORT EKG Measurement Heart [id number] [place] [id number] <Conclusion> Normal sinus rhythm Possible Left atrial enlargement Nonspecific T wave abnormality Prolonged QT Abnormal ECG
== END 2018-04-01 13:23 | disposition home or self-care (01) ==
LOC: H.ER 20:15
DX: F11.10 Opioid abuse, uncomplicated (principal); Z86.59 Personal history of other mental and behavioral disorders; F17.210 Nicotine dependence, cigarettes, uncomplicated; G89.18 Other acute postprocedural pain; J44.9 Chronic obstructive pulmonary disease, unspecified; M81.0 Age-related osteoporosis without current pathological fracture; Z98.890 Other specified postprocedural states
CPT/HCPCS: 70450; 73630; 80053; 81025; 82948; 84484; 85025; 93005; 96374; 99285; G0480; J2060

== ENCOUNTER 2018-05-30 21:49 | Emergency (ER) | payer OTHER ==
[2018-05-30 21:49] VITALS: BMI 28.3
[2018-05-30] MEDS ORDERED: Sodium Chloride 0.9% 1,000 ML IV STA (23:17)
[2018-05-30 23:49] LABS: BLOOD UREA NITROGEN 20 mg/dl (7-17); CALCIUM 9.2 mg/dL (8.4-10.2); GFR AFRICAN-AMERICAN > 60; GFR NON-AFRICAN AMERICAN > 60
[2018-05-30 23:59] LABS: BASO # 0.1 K/uL (0.0-0.2); BASO % 0.7 % (0.0-2.0); EOS # 0.2 K/uL (0.0-0.7); EOS % 1.8 % (0.0-4.0); HEMOGLOBIN 14.1 g/dL (12.0-16.0); LYMPH # 3.1 K/uL (1.0-4.3); LYMPH % 32.5 % (20.0-40.0); MEAN CELL VOLUME 86.5 fl (81.0-99.0); MEAN CORPUSCULAR HEMOGLOBIN 29.3 pg (27.0-31.0); MEAN CORPUSCULAR HGB CONC 33.8 g/dL (33.0-37.0); MEAN PLATELET VOLUME 8.4 fl (7.2-11.7); MONO # 0.6 K/uL (0.0-0.8); MONO % 6.7 % (0.0-10.0); NEUT # 5.6 K/uL (1.8-7.0); NEUT % 58.3 % (50.0-75.0); RBC 4.82 Mil/uL (3.80-5.20); RED CELL DISTRIBUTION WIDTH 14.3 % (11.5-14.5); WHITE BLOOD COUNT 9.6 K/uL (4.8-10.8)
--- NOTE | 2018-05-30 23:59 | ED PDOC ---
HPI: Headache Time Seen by Provider: 05/30/18 23:00 Chief Complaint (Nursing): Headache Chief Complaint (Provider): Headache History Per: Patient History/Exam Limitations: no limitations Onset/Duration Of Symptoms: Days Current Symptoms Are (Timing): Still Present Associated Symptoms: Nausea. denies: Vomiting Additional Complaint(s): Yris Isbell is a 52 year old female with a past medical history of depression, fibrocystic breast disease, and bilateral ocular aneurysm who is presenting to the ED with complaints of intermittent headaches and dizziness, associated with confusion and occasional falling, ongoing for approximately 3 months. Patient states that the headache is gradually worsening but is not "thunderclap" in nature. She reports nausea but denies any vomiting, fevers, or neck stiffness. Patient offers no other medical complaints at this time. PMD: Shaik Marinelli Past Medical History Reviewed: Historical Data, Nursing Documentation, Vital Signs Vital Signs: Last Vital Signs Temp 98.3 F 05/30/18 22:15 Pulse 92 H 05/30/18 22:15 Resp 17 05/30/18 22:15 BP 100/66 05/30/18 22:15 Pulse Ox 97 05/30/18 22:15 - Medical History PMH: Anxiety, Arthritis, Asthma, COPD, Depression, Fractures, Migraine (As per patient), Osteoporosis Denies: Diabetes, Hepatitis, HIV, HTN, Seizures, Sexually Transmitted Disease Other PMH: fibrocystic breast disease, and bilateral ocular aneurysm - Surgical History Surgical History: Cholecystectomy, Tonsillectomy - Family History Family History: States: Unknown Family Hx - Social History Current smoker - smoking cessation education provided: Yes Alcohol: None Drugs: Denies - Immunization History Hx Tetanus Toxoid Vaccination: No Hx Influenza Vaccination: Yes Hx Pneumococcal Vaccination: No - Home Medications Home Medications: Ambulatory Orders Medication Instructions Recorded Acetaminophen/Butalbital/Caf 1 tab PO Q8H PRN 07/13/17 [Fioricet] Calcium Carbonate/Vitamin D3 1 tab PO HS 07/13/17 [Caltrate 600 Plus D3 Tablet] DULoxetine [Cymbalta] 60 mg PO HS 07/13/17 Esomeprazole Magnesium [Nexium 1 cap PO HS 07/13/17 24Hr] Gabapentin [Neurontin] 300 mg PO HS 07/13/17 Meloxicam [Mobic] 15 mg PO HS 07/13/17 clonazePAM [Klonopin] 1 mg PO HS 07/13/17 Fluticasone Nasal [Flonase] 1 actuation NS BID #1 bottle 10/25/17 Ibuprofen [Motrin Tab] 1 tab PO Q6 PRN #20 tab 10/25/17 Promethazine DM [Phenergan DM 5 ml PO Q6 PRN #1 bottle 10/25/17 Syrup] Acetaminophen/Butalbital/Caf 1 tab PO Q12 PRN #12 tab 05/31/18 [Fioricet] - Allergies Allergies/Adverse Reactions: Allergies Allergy/AdvReac Type Severity Reaction Status Date / Time No Known Allergies Allergy Verified 03/31/18 20:23 Review of Systems ROS Statement: Except As Marked, All Systems Reviewed And Found Negative Constitutional: Negative for: Fever Gastrointestinal: Positive for: Nausea. Negative for: Vomiting Musculoskeletal: Negative for: Neck Pain (or stiffness) Neurological: Positive for: Confusion, Headache, Dizziness Physical Exam - Reviewed Nursing Documentation Reviewed: Yes Vital Signs Reviewed: Yes - Physical Exam Appears: Positive for: Non-toxic, No Acute Distress, Uncomfortable Head Exam: Positive for: ATRAUMATIC, NORMAL INSPECTION, NORMOCEPHALIC Skin: Positive for: Normal Color, Warm, DRY Eye Exam: Positive for: EOMI, Normal appearance, PERRL ENT: Positive for: Normal ENT Inspection Neck: Positive for: Normal, Painless ROM Cardiovascular/Chest: Positive for: Regular Rate, Rhythm. Negative for: Murmur Respiratory: Positive for: Normal Breath Sounds. Negative for: Respiratory Distress Gastrointestinal/Abdominal: Positive for: Normal Exam, Soft. Negative for: Tenderness Back: Positive for: Normal Inspection. Negative for: L CVA Tenderness, R CVA Tenderness, Vertebral Tenderness Extremity: Positive for: Normal ROM. Negative for: Pedal Edema, Deformity Neurologic/Psych: Positive for: Alert, registrar assistant II-XII (normal), Oriented, Gait ( normal). Negative for: Motor/Sensory Deficits, Facial Droop - Laboratory Results Result Diagrams: 05/30/18 23:30 05/30/18 23:30 - ECG O2 Sat by Pulse Oximetry: 97 (RA) Pulse Ox Interpretation: Normal Medical Decision Making Medical Decision Making: Time: 12:30 A/P: --52 year old female with a past medical history of depression, fibrocystic breast disease, and bilateral ocular aneurysm presenting with waxing and waning headache and dizziness --Patient is uncomfortable but with normal vital signs --Non-focal exam --Differentials including but not limited to: ocular migraine vs tension headache vs atypical migraine Plan: --CT Head --BMP --Drug Screen --CBC --IV Fluids --Reglan 10 mg IVPB --Toradol 30 mg IVP --Urinalysis Head CT: FINDINGS: Brain: Mild volume loss No hemorrhage. No significant white matter disease. No edema. Ventricles: Normal. No ventriculomegaly. Bones/joints: Normal. No acute fracture. Sinuses: Normal as visualized. No acute sinusitis. Mastoid air cells: Normal as visualized. No mastoid effusion. Soft tissues: Normal. IMPRESSION: No intracranial hemorrhage.Please see discussion above. Upon provider evaluation patient is medically stable, and requires no further treatment in the ED at this time. Patient will be discharged home. Counseling was provided and all questions were answered regarding diagnosis and need for follow up with PMD. There is agreement to discharge plan. Return if symptoms persist or worsen. Scribe Attestation: Documented by Brooklyn Stack, acting as a scribe for Alfonso Hartley MD. Provider Scribe Attestation: All medical record entries made by the Scribe were at my direction and personally dictated by me. I have reviewed the chart and agree that the record accurately reflects my personal performance of the history, physical exam, medical decision making, and the department course for this patient. I have also personally directed, reviewed, and agree with the discharge instructions and disposition. Disposition - Clinical Impression Clinical Impression: Headache - Disposition Referrals: Lasha Keating MD [Medical Doctor] - Disposition: Routine/Home Disposition Time: 02:30 Condition: IMPROVED Prescriptions: Acetaminophen/Butalbital/Caf [Fioricet] 1 tab PO Q12 PRN #12 tab PRN Reason: Pain, Severe (8-10) Instructions: Migraine Headache (DC) Forms: [employer] (Slovenian)
[2018-05-31 00:51] LABS: URINE BILIRUBIN NEGATIVE (NEGATIVE); URINE BLOOD NEGATIVE (NEGATIVE); URINE CLARITY CLEAR (Clear); URINE COLOR COLORLESS (YELLOW); URINE GLUCOSE (UA) NEG (Normal); URINE LEUKOCYTE ESTERASE NEG Leu/uL (Negative); URINE PROTEIN NEGATIVE (NEGATIVE); URINE UROBILINOGEN 0.2-1.0 mg/dL (0.2-1.0)
[2018-05-31 01:09] LABS: BARBITURATES, UR NEGATIVE (NEGATIVE); BENZODIAZEPINES, UR NEGATIVE (NEGATIVE); OPIATES, UR NEGATIVE (NEGATIVE); PHENCYCLIDINE, UR NEGATIVE (NEGATIVE)
[2018-05-31 02:34] VITALS: BP 112/72; PULSE 88; RESP 18; TEMP 98.5
[2018-05-31 05:54] VITALS: O2SAT 97
--- NOTE | 2018-05-31 10:20 | CT ---
Date of service: 05/31/2018 PROCEDURE: CT HEAD WITHOUT CONTRAST. HISTORY: headache, nausea COMPARISON: 03/31/2018 TECHNIQUE: Axial computed tomography images were obtained through the head/brain without intravenous contrast. Radiation dose: Total exam DLP = 787 mGy-cm. This CT exam was performed using one or more of the following dose reduction techniques: Automated exposure control, adjustment of the mA and/or kV according to patient size, and/or use of iterative reconstruction technique. FINDINGS: HEMORRHAGE: No intracranial hemorrhage. BRAIN: No mass effect or edema. No atrophy or chronic microvascular ischemic changes. VENTRICLES: Unremarkable. No hydrocephalus. CALVARIUM: Unremarkable. PARANASAL SINUSES: Unremarkable as visualized. No significant inflammatory changes. MASTOID AIR CELLS: Unremarkable as visualized. No inflammatory changes. OTHER FINDINGS: The report concurs with the preliminary [facility] report IMPRESSION: No acute findings
== END 2018-05-31 02:30 | disposition home or self-care (01) ==
LOC: H.ER 21:49
DX: R51 Headache (principal); F41.9 Anxiety disorder, unspecified
CPT/HCPCS: 70450; 80048; 81003; 85025; 96374; 99285; G0480; J1885; J2765; J7030

== ENCOUNTER 2018-06-19 10:44 | Emergency (ER) | payer OTHER ==
[2018-06-19 10:54] VITALS: BMI 30.9
--- NOTE | 2018-06-19 12:10 | ED PDOC ---
Lower Extremity Pain/Injury Time Seen by Provider: 06/19/18 11:11 Chief Complaint (Nursing): Pain, Chronic Chief Complaint (Provider): Right Lower Extremity Pain History Per: Patient History/Exam Limitations: no limitations Onset/Duration Of Symptoms: Days (7) Additional Complaint(s): 52 year old female with history of anxiety, arthritis, chronic pain/neuropathy/ radiculopathy, COPD, GERD, migraine and osteoporosis presents to the ED for evaluation of chronic right lower extremity and foot pain worsening over the past week. Patient describes pain as an electric shock. She states she had a surgery by Dr. Castillo and has been in pain since then. Patient notes a history of sciatica as well. She denies any trauma, fall, prolonged immobility, taking medication prior to arrival, shortness of breath or chest pain. PMD: Derrek Marinelli Past Medical History Reviewed: Historical Data, Nursing Documentation, Vital Signs Vital Signs: Last Vital Signs Temp 98.6 F 06/19/18 10:55 Pulse 108 H 06/19/18 10:55 Resp 20 06/19/18 10:55 BP 108/71 06/19/18 10:55 Pulse Ox 94 L 06/19/18 10:55 - Medical History PMH: Anxiety, Arthritis, Asthma, COPD, Depression, Fractures, GERD, Hypercholesterolemia, Migraine (As per patient), Osteoporosis - Surgical History Surgical History: Cholecystectomy, Tonsillectomy Other surgeries: multiple right foot surgeries - Family History Family History: States: Unknown Family Hx - Social History Current smoker - smoking cessation education provided: Yes (10 cigarttes daily) Alcohol: Social Drugs: Denies - Home Medications Home Medications: Ambulatory Orders Medication Instructions Recorded Acetaminophen/Butalbital/Caf 1 tab PO Q8H PRN 07/13/17 [Fioricet] Calcium Carbonate/Vitamin D3 1 tab PO HS 07/13/17 [Caltrate 600 Plus D3 Tablet] DULoxetine [Cymbalta] 60 mg PO HS 07/13/17 Esomeprazole Magnesium [Nexium 1 cap PO HS 07/13/17 24Hr] Gabapentin [Neurontin] 300 mg PO HS 07/13/17 Meloxicam [Mobic] 15 mg PO HS 07/13/17 clonazePAM [Klonopin] 1 mg PO HS 07/13/17 Fluticasone Nasal [Flonase] 1 actuation NS BID #1 bottle 01/03/18 Ibuprofen [Motrin Tab] 1 tab PO Q6 PRN #20 tab 10/25/17 Acetaminophen/Butalbital/Caf 1 tab PO Q12 PRN #12 tab 05/31/18 [Fioricet] Acetaminophen [Acetaminophen 8 650 mg PO Q8 PRN #21 tablet.er 06/19/18 Hour] - Allergies Allergies/Adverse Reactions: Allergies Allergy/AdvReac Type Severity Reaction Status Date / Time No Known Allergies Allergy Verified 06/21/18 11:41 Review of Systems ROS Statement: Except As Marked, All Systems Reviewed And Found Negative Cardiovascular: Negative for: Chest Pain Respiratory: Negative for: Shortness of Breath Musculoskeletal: Positive for: Foot Pain (right), Other (Right lower extermity pain) Physical Exam - Reviewed Nursing Documentation Reviewed: Yes Vital Signs Reviewed: Yes - Physical Exam Comments: GENERAL APPEARANCE: Patient is awake, alert, oriented x 3, uncomfortable appearing but in no acute distress. Cane noted at bed side. SKIN: Warm, dry; (-) cyanosis. NECK: Supple, FROM ENT: Mucus membranes moist. Airway patent, (-) stridor. RIGHT LOWER EXTREMITY: Ankle: (-) swelling, tenderness of the medial aspect of right ankle; (-) swelling and tenderness of the lateral malleolus; (+) limited range of motion secondary to right foot pain. Achilles tendon intact and nontender. Foot: (+) diffuse tenderness to right foot (-) erythema (-) ecchymosis (-) warmth (-) effusion. (+) well healed surgical scars x2. Sensation intact throughout. (-) calf tenderness (-) palpable cord. Cap refill intact. CARDIOVASCULAR: Normal rate and rhythm. (+) distal pulse CHEST AND RESPIRATORY: (-) rales (-) rhonchi (-) wheezing, breath sounds equal bilaterally. Respirations nonlabored. - Laboratory Results Result Diagrams: 06/19/18 14:20 06/19/18 14:20 Urine dip results: Positive for: Protein (30). Negative for: Leukocyte Esterase , Blood, Nitrate, Ketones, Glucose, Bilirubin - ECG O2 Sat by Pulse Oximetry: 94 (RA) Pulse Ox Interpretation: Normal (in COPD patient) Medical Decision Making Medical Decision Making: Time: 1040 Initial Impression: acute on chronic foot pain. Initial Plan: --Toradol 30 mg IM --Right Foot 3 Views X-Ray 1140 Consult podiatry resident, Dr. Rodriguez who will see patient on at bed site. 1220 Podiatry, Dr. Rodriguez is at bed side. See consult note. 1248 Foot X-Ray FINDINGS: BONES: Stable postsurgical changes in the 1st, 2nd and 5th metatarsals, base of the 2nd proximal phalanx and distal 5th proximal phalanx. Removal of pins from 2nd and 5th digit. No acute fracture. JOINTS: Unchanged. SOFT TISSUES: Normal. OTHER FINDINGS: None. IMPRESSION: Stable postsurgical changes with removal of 2nd and 5th digit pins. No acute fracture or other significant interval change. 1325 Per podiatry evaluation, patient can follow up in clinic and no further intervention needs to take place in ED. Repeat HR: 70 On re-evaluation, patient states pain is improved but notes she has been feeling "ill" x2 weeks now. Patient states she has had diffuse myalgias, chills , and feeling weak. CBC, BMP, Urine dipstick, and Urine drug screen ordered. 1415 Udip Reviewed, (-) evidence of UTI. 1445 CBC and BMP grossly unremarkable. Utox pending. 1500 Utox: (+) barbiturates On re-evaluation, patient reports improvement of symptoms. On exam, patient remains AAOx3, in no acute distress. Lungs clear to auscultation, cardiac RRR, abdomen soft, non-tender, repeat neuro exam shows no focal findings. Ambulatory in ED with cane. Lab/Diagnostic results d/w the patient in great detail. Diagnosis of chronic pain d/w the patient. Based on history, exam and diagnostic results, plan will be for outpatient follow up. Patient instructed to follow-up with pmd / referral provided / the clinic in 1- 2 days without fail. Advised to take medication as prescribed. Return to the emergency room at any time for any new or worsening symptoms. Patient states she fully agrees with and understands discharge instructions. States that she agrees with the plan and disposition. Verbalized and repeated discharge instructions and plan. I have given the patient opportunity to ask any additional questions. Scribe Attestation: Documented by Noemy Stein, acting as a scribe for ADELINA Syed. Provider Scribe Attestation: All medical record entries made by the Scribe were at my direction and personally dictated by me. I have reviewed the chart and agree that the record accurately reflects my personal performance of the history, physical exam, medical decision making, and the department course for this patient. I have also personally directed, reviewed, and agree with the discharge instructions and disposition. Disposition - Clinical Impression Clinical Impression: Chronic pain, Radiculopathy, Neuropathy - Patient ED Disposition Is Patient to be Admitted: No Counseled Patient/Family Regarding: Studies Performed, Diagnosis, Need For Followup, Rx Given - Disposition Referrals: Shaik Marinelli MD [Medical Doctor] - Podiatry Clinic [Outside] Disposition: Routine/Home Disposition Time: 15:01 Condition: STABLE Additional Instructions: The emergency medical care you received today was directed at your acute symptoms. If you were prescribed any medication, please fill it and take as directed. It may take several days for your symptoms to resolve. Return to the Emergency Department if your symptoms worsen, do not improve, or if you have any other problems. Please contact your doctor in 2 days for re-evaluation and follow up / or call one of the physicians/clinics you have been referred to that are listed on the Patient Visit Information form that is included in your discharge packet. Bring any paperwork you were given at discharge with you along with any medications you are taking to your follow up visit. Our treatment cannot replace ongoing medical care by a primary care provider (PCP) outside of the emergency department. Prescriptions: Acetaminophen [Acetaminophen 8 Hour] 650 mg PO Q8 PRN #21 tablet.er PRN Reason: Pain, Moderate (4-7) Instructions: Peripheral Neuropathy, Radiculopathy, Chronic Pain (DC) Forms: [employer] (Salvadorean) Print Language: GREENLANDIC - POA Present On Arrival: None Results - Lab Results Lab Results: 06/19/18 06/19/18 06/19/18 14:20 14:20 14:12 WBC 9.6 RBC 4.96 Hgb 14.2 Hct 42.9 MCV 86.5 MCH 28.7 MCHC 33.2 RDW 14.5 Plt Count 293 MPV 8.2 Neut % (Auto) 63.0 Lymph % (Auto) 29.0 [place] % (Auto) 5.9 Eos % (Auto) 1.6 Baso % (Auto) 0.5 Neut # (Auto) 6.1 Lymph # (Auto) 2.8 [place] # (Auto) 0.6 Eos # (Auto) 0.2 Baso # (Auto) 0.0 Sodium 140 Potassium 3.9 Chloride 106 Carbon Dioxide 26 Anion Gap 12 BUN 19 H Creatinine 0.6 L Est GFR ( Amer) > 60 Est GFR (Non-Af Amer) > 60 Random Glucose 90 Calcium 9.2 Urine Opiates Screen Negative Urine Methadone Screen Negative Ur Barbiturates Screen Positive H Ur Phencyclidine Scrn Negative Ur Amphetamines Screen Negative U Benzodiazepines Scrn Negative U Oth Cocaine Metabols Negative U Cannabinoids Screen Negative
[2018-06-19 12:40] VITALS: BP 151/99; PULSE 70; RESP 12; TEMP 98
[2018-06-19 12:46] VITALS: O2SAT 94
--- NOTE | 2018-06-19 12:50 | RAD ---
Date of service: 06/19/2018 PROCEDURE: Right Foot Radiographs. HISTORY: pain in the right foot COMPARISON: Right foot radiographs dated 03/31/2018. FINDINGS: BONES: Stable postsurgical changes in the 1st, 2nd and 5th metatarsals, base of the 2nd proximal phalanx and distal 5th proximal phalanx. Removal of pins from 2nd and 5th digit. No acute fracture. JOINTS: Unchanged. SOFT TISSUES: Normal. OTHER FINDINGS: None. IMPRESSION: Stable postsurgical changes with removal of 2nd and 5th digit pins. No acute fracture or other significant interval change.
[2018-06-19 14:28] LABS: BASO % 0.5 % (0.0-2.0); EOS # 0.2 K/uL (0.0-0.7); EOS % 1.6 % (0.0-4.0); HEMOGLOBIN 14.2 g/dL (12.0-16.0); LYMPH # 2.8 K/uL (1.0-4.3); MEAN CELL VOLUME 86.5 fl (81.0-99.0); MEAN CORPUSCULAR HEMOGLOBIN 28.7 pg (27.0-31.0); MEAN CORPUSCULAR HGB CONC 33.2 g/dL (33.0-37.0); MEAN PLATELET VOLUME 8.2 fl (7.2-11.7); MONO # 0.6 K/uL (0.0-0.8); MONO % 5.9 % (0.0-10.0); NEUT # 6.1 K/uL (1.8-7.0); RBC 4.96 Mil/uL (3.80-5.20); RED CELL DISTRIBUTION WIDTH 14.5 % (11.5-14.5); WHITE BLOOD COUNT 9.6 K/uL (4.8-10.8)
[2018-06-19 14:35] LABS: BLOOD UREA NITROGEN 19 mg/dl (7-17); CALCIUM 9.2 mg/dL (8.4-10.2); GFR NON-AFRICAN AMERICAN > 60
[2018-06-19 14:48] LABS: BARBITURATES, UR POSITIVE (NEGATIVE); BENZODIAZEPINES, UR NEGATIVE (NEGATIVE); OPIATES, UR NEGATIVE (NEGATIVE); PHENCYCLIDINE, UR NEGATIVE (NEGATIVE)
== END 2018-06-19 15:23 | disposition home or self-care (01) ==
LOC: H.ER 10:44
DX: M54.10 Radiculopathy, site unspecified (principal); G62.9 Polyneuropathy, unspecified; G89.29 Other chronic pain; E78.00 Pure hypercholesterolemia, unspecified
CPT/HCPCS: 73630; 80048; 85025; 96372; 99284; G0480; J1885

== ENCOUNTER 2018-10-03 15:28 | Emergency (ER) | payer OTHER ==
[2018-10-03 15:28] VITALS: BMI 31.8
--- NOTE | 2018-10-03 16:08 | ED PDOC ---
HPI: General Adult Time Seen by Provider: 10/03/18 16:02 Chief Complaint (Nursing): Trauma Chief Complaint (Provider): FALL History Per: Patient (52 Y/O FEMALE HERE FOR FALL THAT OCCURRED WHILE USING WALKER TODAY. 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 STATES SHE HAS H/O DIZZINESS INTERMITTENT AND TODAY FELL. DENIES ANY HEAD INJURY BUT NOTES MIGRAINE HEADACHE. HAS WRIST PAIN/SWELLING; RIGHT CHEST WALL TENDERNESS; RIGHT HIP PAIN SIMILAR TO H/O SCIATICA. ) Past Medical History Reviewed: Historical Data, Nursing Documentation, Vital Signs Vital Signs: Last Vital Signs Temp 97.8 F 10/03/18 15:30 Pulse 101 H 10/03/18 15:30 Resp 22 10/03/18 15:30 BP 125/74 10/03/18 15:30 Pulse Ox 96 10/03/18 15:30 - Medical History PMH: Anxiety, Arthritis, Asthma (Pt denies), COPD, Depression, Fractures, GERD, Migraine (As per patient), Osteoporosis Denies: Diabetes, Hepatitis, HIV, HTN, Seizures, Sexually Transmitted Disease - Surgical History Surgical History: Cholecystectomy, Tonsillectomy - Family History Family History: States: Unknown Family Hx - Immunization History Hx Tetanus Toxoid Vaccination: (k) Hx Influenza Vaccination: No Hx Pneumococcal Vaccination: Yes (2016) - Home Medications Home Medications: Ambulatory Orders Medication Instructions Recorded Calcium Carbonate/Vitamin D3 1 tab PO HS 07/13/17 [Caltrate 600 Plus D3 Tablet] DULoxetine [Cymbalta] 60 mg PO HS 07/13/17 Esomeprazole Magnesium [Nexium 1 cap PO HS 07/13/17 24Hr] Gabapentin [Neurontin] 300 mg PO HS 07/13/17 Meloxicam [Mobic] 15 mg PO HS 07/13/17 clonazePAM [Klonopin] 1 mg PO HS 07/13/17 Fluticasone Nasal [Flonase] 1 actuation NS BID #1 bottle 10/25/17 Ibuprofen [Motrin Tab] 1 tab PO Q6 PRN #20 tab 10/25/17 Acetaminophen/Butalbital/Caf 1 tab PO Q12 PRN #12 tab 05/31/18 [Fioricet] Acetaminophen [Acetaminophen 8 650 mg PO Q8 PRN #21 tablet.er 06/19/18 Hour] cefTRIAXone [Rocephin] 2 gm IVPB Q24H vial 10/23/18 Magnesium Oxide [Mag-Ox] 400 mg PO BID #30 tab 08/24/18 Meloxicam 7.5 mg PO BID PRN #14 tablet 10/03/18 - Allergies Allergies/Adverse Reactions: Allergies Allergy/AdvReac Type Severity Reaction Status Date / Time No Known Allergies Allergy Verified 10/03/18 15:30 Review of Systems ROS Statement: Except As Marked, All Systems Reviewed And Found Negative Physical Exam - Reviewed Nursing Documentation Reviewed: Yes Vital Signs Reviewed: Yes - Physical Exam Appears: Positive for: Well, Non-toxic, No Acute Distress Head Exam: Positive for: ATRAUMATIC, NORMAL INSPECTION, NORMOCEPHALIC Skin: Positive for: Normal Color, Warm, DRY Eye Exam: Positive for: EOMI, Normal appearance, PERRL ENT: Positive for: Normal ENT Inspection Neck: Positive for: Normal, Painless ROM Cardiovascular/Chest: Positive for: Regular Rate, Rhythm Respiratory: Positive for: CNT, Normal Breath Sounds Gastrointestinal/Abdominal: Positive for: Normal Exam, Soft Back: Positive for: Normal Inspection Extremity: Positive for: Normal ROM Neurologic/Psych: Positive for: Alert, Oriented - Laboratory Results Result Diagrams: 10/03/18 16:25 10/03/18 16:25 - ECG O2 Sat by Pulse Oximetry: 96 - Progress ED Course And Treament: xry of wrist: no fx xry of chest: no rib fx xry of hip: no fx ct head: no acute injury toradol 15 mg iv x 1 dose Disposition - Clinical Impression Clinical Impression: Dizziness, Wrist contusion, Sciatica, Contusion of chest wall - Patient ED Disposition Is Patient to be Admitted: No - Disposition Disposition: Routine/Home Disposition Time: 17:35 Condition: FAIR Prescriptions: Meloxicam 7.5 mg PO BID PRN #14 tablet PRN Reason: Pain, Moderate (4-7) Instructions: Vertigo (a Type of Dizziness) (DC), Contusion (DC), Sciatica
[2018-10-03 16:52] LABS: BASO # 0.1 K/uL (0.0-0.2); BASO % 1.5 % (0.0-2.0); EOS # 0.2 K/uL (0.0-0.7); EOS % 2.3 % (0.0-4.0); HEMOGLOBIN 13.3 g/dL (12.0-16.0); LYMPH # 2.6 K/uL (1.0-4.3); LYMPH % 31.4 % (20.0-40.0); MEAN CORPUSCULAR HEMOGLOBIN 29.2 pg (27.0-31.0); MEAN PLATELET VOLUME 8.5 fl (7.2-11.7); MONO # 0.6 K/uL (0.0-0.8); MONO % 6.8 % (0.0-10.0); NEUT # 4.9 K/uL (1.8-7.0); NRBC % 0.1 % (0.0-0.0); RBC 4.56 Mil/uL (3.80-5.20); RED CELL DISTRIBUTION WIDTH 13.6 % (11.5-14.5); WHITE BLOOD COUNT 8.4 K/uL (4.8-10.8)
[2018-10-03 16:59] LABS: ALB/GLOB RATIO 1.3 (1.0-2.1); ALBUMIN 3.9 g/dL (3.5-5.0); ALT/SGPT 27 U/L (9-52); AST/SGOT 23 U/L (14-36); BLOOD UREA NITROGEN 20 mg/dl (7-17); GFR NON-AFRICAN AMERICAN > 60
--- NOTE | 2018-10-03 17:35 | CT ---
Date of service: 10/03/2018 PROCEDURE: CT HEAD WITHOUT CONTRAST. HISTORY: DIZZY COMPARISON: Comparison is made with 05/31/2018 TECHNIQUE: Axial computed tomography images were obtained through the head/brain without intravenous contrast. Radiation dose: Total exam DLP = 773.13 mGy-cm. This CT exam was performed using one or more of the following dose reduction techniques: Automated exposure control, adjustment of the mA and/or kV according to patient size, and/or use of iterative reconstruction technique. FINDINGS: HEMORRHAGE: No intracranial hemorrhage. BRAIN: No mass effect or edema. No atrophy or chronic microvascular ischemic changes. VENTRICLES: Unremarkable. No hydrocephalus. CALVARIUM: Unremarkable. PARANASAL SINUSES: Unremarkable as visualized. No significant inflammatory changes. MASTOID AIR CELLS: Unremarkable as visualized. No inflammatory changes. OTHER FINDINGS: None. IMPRESSION: No evidence of acute intracranial hemorrhage mass effect or midline shift.
[2018-10-03 20:53] VITALS: BP 103/65; PULSE 80; RESP 18; TEMP 97.9; O2SAT 98
--- NOTE | 2018-10-04 06:07 | CARD ---
APPROVED REPORT Date of service: 10/03/2018 EKG Measurement Heart [id number] <Conclusion> Normal sinus rhythm Normal ECG
--- NOTE | 2018-10-04 09:22 | RAD ---
Date of service: 10/03/2018 PROCEDURE: RIGHT HIP WITH PELVIS RADIOGRAPHS HISTORY: RIGHT HIP PAIN COMPARISON: CT abdomen pelvis 02/06/2017. TECHNIQUE: Frontal views of the pelvis and right hip joint of been submitted for interpretation with frog-leg lateral view right hip joint. FINDINGS: No acute fracture dislocation of the pelvic ring or bilateral hip joints. No suspicious lytic or blastic change. Pubic symphysis appears intact as result was well as remaining bony pubic anatomy. Degenerative changes seen the bilateral hip joints mildly as well as the sacroiliac joints. Nonspecific heterotopic calcifications seen cephalad to the greater trochanter proximal right femur not significantly changed compared prior pelvis component of CT 02/06/2017. Soft tissue calcifications in the pelvis likely reflect phleboliths unchanged compared prior CT as well. Sacrum is intact swells iliac bones. Moderate retained fecal material is incidentally seen throughout the large bowel with the urinary bladder distended. IMPRESSION: No acute fracture of the pelvic ring or the right hip joint. No dislocation right hip joint.
--- NOTE | 2018-10-04 09:24 | RAD ---
Date of service: 10/03/2018 PROCEDURE: Radiographs of the Chest and Right Ribs. HISTORY: CHEST WALL INJURY COMPARISON: None available. TECHNIQUE: Frontal radiograph of the chest and multiple oblique radiographs of the right ribs were obtained. FINDINGS: RIGHT RIBS: No fracture or focal lesion visualized. LUNGS: No interval pulmonary disease appreciated bilaterally. PLEURA: No pneumothorax or pleural fluid. CARDIOVASCULAR: Normal cardiac size. No pulmonary vascular congestion. No aortic atherosclerotic calcification present OTHER FINDINGS: None. IMPRESSION: Unremarkable radiographs of the chest and right ribs. No right rib fracture.
--- NOTE | 2018-10-04 09:25 | RAD ---
Date of service: 10/03/2018 PROCEDURE: Right Wrist Radiographs. HISTORY: WRIST INJUR COMPARISON: None. FINDINGS: BONES: No acute fracture or destructive bony lesion identified. JOINTS: Normal. No dislocation. SOFT TISSUES: Normal. OTHER FINDINGS: None. IMPRESSION: Unremarkable right wrist radiographs. If symptoms persist or worsen follow-up radiography or CT is recommended.
== END 2018-10-03 18:25 | disposition home or self-care (01) ==
LOC: H.ER 15:28
DX: R42 Dizziness and giddiness (principal); S20.219A Contusion of unspecified front wall of thorax, initial encounter; S60.211A Contusion of right wrist, initial encounter; W19.XXXA Unspecified fall, initial encounter; Y92.89 Other specified places as the place of occurrence of the external cause; M54.31 Sciatica, right side; K21.9 Gastro-esophageal reflux disease without esophagitis; F32.9 Major depressive disorder, single episode, unspecified
CPT/HCPCS: 70450; 71101; 73110; 73502; 80053; 83735; 84484; 85025; 93005; 96374; 99285; J1885

== ENCOUNTER 2018-12-07 14:58 | Inpatient (IN) | payer OTHER ==
[2018-12-07 14:58] VITALS: BMI 31.8
[2018-12-07] MEDS ORDERED: Sodium Chloride 0.9% 1,000 ML IV STA (15:17)
--- NOTE | 2018-12-07 15:44 | ED PDOC ---
HPI: Psych/Substance Abuse History Per: Patient, EMS Suicide/Self Injury Attempted (Context): Ingestion Additional Complaint(s): Pt is a 53 y/o female with hx of Lyme Disease Stage II with Neuropathy, Migraines, Depression, Anxiety brought in to ED by EMS that was called by patient's son who told them that she ingested excess Clonazapem in an attempted suicide. Pt states she did not take Clonazepam but reports that she did take a lot of cough medication. She denies chest pain, sob. Complains of headache. Time of ingestion and dosages are unknown. Pt is lethargic but responds minimally and has generalized tremor, as per EMS, family states this is her baseline behavior. PMD:Dr. Yves Hart <Suzy Molina - Last Filed: 12/07/18 15:48> <Lan Barragan - Last Filed: 12/07/18 17:02> Time Seen by Provider: 12/07/18 15:12 Chief Complaint (Nursing): Substance Abuse Supervising Attending Note - Supervising Attending Note The Documented history was done by the: Physician Weather Analyst The documented physical exam was done by the: Physician Weather Analyst The documented procedures were done by the: Physician Weather Analyst - Attestation: I have personally seen and examined this patient.: Yes I have fully participated in the care of the patient.: Yes I have reviewed all pertinent clinical information, including history, physical exam and plan: Yes - Notes: Notes:: overdose on cough medicine and clonazapam. <Lan Barragan - Last Filed: 12/07/18 17:02> Past Medical History Reviewed: Historical Data, Nursing Documentation, Vital Signs Vital Signs: Last Vital Signs Temp 98.2 F 12/07/18 15:00 Pulse 106 H 12/07/18 15:00 Resp 20 12/07/18 15:00 BP 102/50 L 12/07/18 15:00 Pulse Ox 96 12/07/18 15:00 - Medical History PMH: Anxiety, Arthritis, Asthma (Pt denies), COPD, Depression, Fractures, GERD, Migraine (As per patient), Osteoporosis, Rheumatoid Arthritis Denies: Diabetes, Hepatitis, HIV, HTN, Seizures, Sexually Transmitted Disease - Surgical History Surgical History: Cholecystectomy, Tonsillectomy - Family History Family History: States: Unknown Family Hx - Immunization History Hx Tetanus Toxoid Vaccination: (unk) Hx Influenza Vaccination: No Hx Pneumococcal Vaccination: Yes (2016) <Suzy Molina - Last Filed: 12/07/18 15:48> Vital Signs: Last Vital Signs Temp 98.2 F 12/07/18 15:00 Pulse 94 H 12/07/18 16:14 Resp 19 12/07/18 16:14 BP 140/76 12/07/18 16:14 Pulse Ox 98 12/07/18 16:14 <Lna Barragan - Last Filed: 12/07/18 17:02> - Home Medications Home Medications: Ambulatory Orders Medication Instructions Recorded Calcium Carbonate/Vitamin D3 1 tab PO HS 07/13/17 [Caltrate 600 Plus D3 Tablet] DULoxetine [Cymbalta] 60 mg PO HS 07/13/17 Esomeprazole Magnesium [Nexium 1 cap PO HS 07/13/17 24Hr] Gabapentin [Neurontin] 300 mg PO HS 07/13/17 Meloxicam [Mobic] 15 mg PO HS 07/13/17 clonazePAM [Klonopin] 1 mg PO HS 07/13/17 Fluticasone Nasal [Flonase] 1 actuation NS BID #1 bottle 10/25/17 Ibuprofen [Motrin Tab] 1 tab PO Q6 PRN #20 tab 10/25/17 Acetaminophen/Butalbital/Caf 1 tab PO Q12 PRN #12 tab 05/31/18 [Fioricet] Acetaminophen [Acetaminophen 8 650 mg PO Q8 PRN #21 tablet.er 06/19/18 Hour] cefTRIAXone [Rocephin] 2 gm IVPB Q24H vial 08/14/18 Magnesium Oxide [Mag-Ox] 400 mg PO BID #30 tab 08/24/18 Meloxicam 7.5 mg PO BID PRN #14 tablet 10/03/18 - Allergies Allergies/Adverse Reactions: Allergies Allergy/AdvReac Type Severity Reaction Status Date / Time No Known Allergies Allergy Verified 12/07/18 15:00 Review of Systems Constitutional: Negative for: Fever, Chills Cardiovascular: Negative for: Chest Pain Respiratory: Negative for: Cough <Suzy Molina - Last Filed: 12/07/18 15:48> Physical Exam - Physical Exam Appears: Positive for: No Acute Distress (Female seen lying in bed with generalized tremor of head, neck and all extremities. Cooperative with exam. No acute distress noted. ) Head Exam: Positive for: ATRAUMATIC, NORMAL INSPECTION, NORMOCEPHALIC Skin: Positive for: Normal Color. Negative for: Diaphoresis, Pallor Eye Exam: Positive for: Normal appearance, EOMI, PERRL. Negative for: Nystagmus ENT: Negative for: Nasal Congestion Neck: Positive for: Normal, Painless ROM Cardiovascular/Chest: Positive for: Regular Rate, Rhythm. Negative for: Murmur Respiratory: Positive for: Normal Breath Sounds. Negative for: Accessory Muscle Use, Crackles, Rales, Wheezing Gastrointestinal/Abdominal: Positive for: Normal Exam, Bowel Sounds. Negative for: Soft, Tenderness Extremity: Positive for: Normal ROM. Negative for: Pedal Edema Neurologic/Psych: Positive for: Alert, leather lacer II-XII, Oriented, Motor/Sensory Deficits, Mood/Affect (blunted). Negative for: Aphasia, Facial Droop <Suzy Molina - Last Filed: 12/07/18 15:48> - Physical Exam Cardiovascular/Chest: Positive for: Regular Rate, Rhythm Respiratory: Positive for: Normal Breath Sounds Gastrointestinal/Abdominal: Negative for: Tenderness <Lan Barragan - Last Filed: 12/07/18 17:02> - ECG O2 Sat by Pulse Oximetry: 96 <Suzy Molina - Last Filed: 12/07/18 15:48> - Laboratory Results Result Diagrams: 12/07/18 15:40 12/07/18 15:40 Lab Results: pO2 62 mm/Hg (30-55) H 12/07/18 15:46 VBG pH 7.41 (7.32-7.43) 12/07/18 15:46 VBG pCO2 45 mmHg (40-60) 12/07/18 15:46 VBG HCO3 27.3 mmol/L 12/07/18 15:46 VBG Total CO2 29.9 mmol/L (22-28) H 12/07/18 15:46 VBG O2 Sat (Calc) 96.9 % (40-65) H 12/07/18 15:46 VBG Base Excess 3.2 mmol/L (0.0-2.0) H 12/07/18 15:46 VBG Potassium 3.7 mmol/L (3.6-5.2) 12/07/18 15:46 Sodium 137.0 mmol/L (132-148) 12/07/18 15:46 Chloride 106.0 mmol/L (98-107) 12/07/18 15:46 Glucose 91 mg/dL (65-105) 12/07/18 15:46 Lactate 1.0 mmol/L (0.7-2.1) 12/07/18 15:46 FiO2 21.0 % 12/07/18 15:46 PT 11.8 Seconds (9.8-13.1) 12/07/18 15:40 INR 1.0 12/07/18 15:40 APTT 38.4 Seconds (25.6-37.1) H 12/07/18 15:40 Troponin I < 0.0120 ng/mL (0.00-0.120) 12/07/18 15:40 Total Bilirubin 0.5 mg/dl (0.2-1.3) 12/07/18 15:40 AST 33 U/L (14-36) 12/07/18 15:40 ALT 36 U/L (9-52) 12/07/18 15:40 Alkaline Phosphatase 82 U/L (38-126) 12/07/18 15:40 Total Protein 7.8 G/DL (6.3-8.2) 12/07/18 15:40 Albumin 4.4 g/dL (3.5-5.0) 12/07/18 15:40 Globulin 3.4 gm/dL (2.2-3.9) 12/07/18 15:40 Albumin/Globulin Ratio 1.3 (1.0-2.1) 12/07/18 15:40 Interpretation Of Abn Labs: no acute - ECG ECG: Positive for: Interpreted By Me, Viewed By Me ECG Rhythm: Positive for: Normal QRS, Normal ST Segment, Sinus Rhythm Pulse Ox Interpretation: Normal - Progress ED Course And Treament: 1700: Dr. Carvajal to take over care. Fu on ekg repeat and crisis. <Lan Barragan - Last Filed: 12/07/18 17:02> Medical Decision Making Medical Decision Making: Pt is a 53 y/o female brought in by EMS due to drug overdose, possible Clonazapam and cough syrup. Hemodynamically stable. Poison Control Notified, discussed case with Ed. Endorsed pt. Recommendations: - Benzo overdose supportive care and observation, no reversal agents at any point. -For cough medication- states to watch for AMS and agitation and can give Benzo for sedation. Also advised to check EKG for QRS prolongation, repeat in 4 hours -Check Tylenol CBC CMP Tylenol, serum Salacylic acid ETOH, serum Utox EKG Trop COAG 1:1 <Suzy Molina - Last Filed: 12/07/18 15:48> Disposition <Suzy Molina - Last Filed: 12/07/18 15:48> - Patient ED Disposition Is Patient to be Admitted: Transfer of Care - Disposition Disposition Time: 16:01 Patient Signed Over To: Duong Carvajal III <Lan Barragan - Last Filed: 12/07/18 17:02> - Clinical Impression Clinical Impression: Overdose - Disposition Condition: STABLE
[2018-12-07 15:46] LABS: BASO # 0.1 K/uL (0.0-0.2); BASO % 1.2 % (0.0-2.0); EOS # 0.2 K/uL (0.0-0.7); EOS % 2.6 % (0.0-4.0); HEMOGLOBIN 14.8 g/dL (12.0-16.0); LYMPH # 1.4 K/uL (1.0-4.3); LYMPH % 16.6 % (20.0-40.0); MEAN CELL VOLUME 85.2 fl (81.0-99.0); MEAN CORPUSCULAR HEMOGLOBIN 28.6 pg (27.0-31.0); MEAN CORPUSCULAR HGB CONC 33.6 g/dL (33.0-37.0); MEAN PLATELET VOLUME 8.3 fl (7.2-11.7); MONO # 0.8 K/uL (0.0-0.8); MONO % 9.2 % (0.0-10.0); NEUT % 70.4 % (50.0-75.0); NRBC % 0.1 % (0.0-0.0); RBC 5.16 Mil/uL (3.80-5.20); RED CELL DISTRIBUTION WIDTH 14.2 % (11.5-14.5); WHITE BLOOD COUNT 8.5 K/uL (4.8-10.8)
[2018-12-07 15:51] LABS: VENOUS BLOOD GAS BASE EXCESS 3.2 mmol/L (0.0-2.0); VENOUS BLOOD GAS PCO2 45 mmHg (40-60); VENOUS BLOOD GAS PO2 62 mm/Hg (30-55); VENOUS BLOOD PH 7.41 (7.32-7.43)
[2018-12-07 16:11] LABS: ALB/GLOB RATIO 1.3 (1.0-2.1); ALBUMIN 4.4 g/dL (3.5-5.0); ALT/SGPT 36 U/L (9-52); AST/SGOT 33 U/L (14-36); BLOOD UREA NITROGEN 19 mg/dl (7-17); CALCIUM 9.8 mg/dL (8.4-10.2); GFR NON-AFRICAN AMERICAN > 60
[2018-12-07 16:13] LABS: ACETAMINOPHEN < 10.0 ug/ml (10.0-30.0); SALICYLATE < 1.0 mg/dl
[2018-12-07 16:18] LABS: PROTHROMBIN TIME 11.8 Seconds (9.8-13.1)
[2018-12-07 16:21] LABS: PARTIAL THROMBOPLASTIN TIME 38.4 Seconds (25.6-37.1)
[2018-12-07 16:39] LABS: BARBITURATES, UR NEGATIVE (NEGATIVE); PHENCYCLIDINE, UR NEGATIVE (NEGATIVE)
[2018-12-07 16:40] LABS: BENZODIAZEPINES, UR NEGATIVE (NEGATIVE); OPIATES, UR NEGATIVE (NEGATIVE)
[2018-12-07 17:14] LABS: SQUAMOUS EPITHIAL 2 /hpf (0-5); URINE BACTERIA RARE (<OCC); URINE BILIRUBIN SMALL (NEGATIVE); URINE BLOOD SMALL (NEGATIVE); URINE CLARITY CLEAR (Clear); URINE COLOR YELLOW (YELLOW); URINE GLUCOSE (UA) NEG (NEGATIVE); URINE LEUKOCYTE ESTERASE NEG Leu/uL (Negative); URINE PROTEIN NEGATIVE (NEGATIVE); URINE UROBILINOGEN 0.2-1.0 mg/dL (0.2-1.0)
--- NOTE | 2018-12-07 17:15 | ED PDOC ---
- Laboratory Results Result Diagrams: 12/07/18 15:40 12/07/18 15:40 Lab Results: pO2 62 mm/Hg (30-55) H 12/07/18 15:46 VBG pH 7.41 (7.32-7.43) 12/07/18 15:46 VBG pCO2 45 mmHg (40-60) 12/07/18 15:46 VBG HCO3 27.3 mmol/L 12/07/18 15:46 VBG Total CO2 29.9 mmol/L (22-28) H 12/07/18 15:46 VBG O2 Sat (Calc) 96.9 % (40-65) H 12/07/18 15:46 VBG Base Excess 3.2 mmol/L (0.0-2.0) H 12/07/18 15:46 VBG Potassium 3.7 mmol/L (3.6-5.2) 12/07/18 15:46 Sodium 137.0 mmol/L (132-148) 12/07/18 15:46 Chloride 106.0 mmol/L (98-107) 12/07/18 15:46 Glucose 91 mg/dL (65-105) 12/07/18 15:46 Lactate 1.0 mmol/L (0.7-2.1) 12/07/18 15:46 FiO2 21.0 % 12/07/18 15:46 PT 11.8 Seconds (9.8-13.1) 12/07/18 15:40 INR 1.0 12/07/18 15:40 APTT 38.4 Seconds (25.6-37.1) H 12/07/18 15:40 Troponin I < 0.0120 ng/mL (0.00-0.120) 12/07/18 15:40 Total Bilirubin 0.5 mg/dl (0.2-1.3) 12/07/18 15:40 AST 33 U/L (14-36) 12/07/18 15:40 ALT 36 U/L (9-52) 12/07/18 15:40 Alkaline Phosphatase 82 U/L (38-126) 12/07/18 15:40 Total Protein 7.8 G/DL (6.3-8.2) 12/07/18 15:40 Albumin 4.4 g/dL (3.5-5.0) 12/07/18 15:40 Globulin 3.4 gm/dL (2.2-3.9) 12/07/18 15:40 Albumin/Globulin Ratio 1.3 (1.0-2.1) 12/07/18 15:40 Urine Color Yellow (YELLOW) 12/07/18 16:19 Urine Clarity Clear (Clear) 12/07/18 16:19 Urine pH 7.0 (5.0-8.0) 12/07/18 16:19 Ur Specific [place] 1.016 (1.003-1.030) 12/07/18 16:19 Urine Protein Negative mg/dL (NEGATIVE) 12/07/18 16:19 Urine Glucose (UA) Neg mg/dL (NEGATIVE) 12/07/18 16: Urine Ketones Negative mg/dL (NEGATIVE) 12/07/18 16:19 Urine Blood Small (NEGATIVE) 12/07/18 16:19 Urine Nitrate Negative (NEGATIVE) 12/07/18 16:19 Urine Bilirubin Small (NEGATIVE) 12/07/18 16:19 Urine Urobilinogen 0.2-1.0 mg/dL (0.2-1.0) 12/07/18 16:19 Ur Leukocyte Esterase Neg Tonja/uL (Negative) 12/07/18 16:19 Urine RBC (Auto) 4 /hpf (0-3) H 12/07/18 16:19 Urine Microscopic WBC 1 /hpf (0-5) 12/07/18 16:19 Ur Squamous Epith Cells 2 /hpf (0-5) 12/07/18 16:19 Urine Bacteria Rare (<OCC) 12/07/18 16:19 <Suzy Molina - Last Filed: 12/07/18 19:19> - Laboratory Results Result Diagrams: 12/07/18 15:40 12/07/18 15:40 Lab Results: pO2 62 mm/Hg (30-55) H 12/07/18 15:46 VBG pH 7.41 (7.32-7.43) 12/07/18 15:46 VBG pCO2 45 mmHg (40-60) 12/07/18 15:46 VBG HCO3 27.3 mmol/L 12/07/18 15:46 VBG Total CO2 29.9 mmol/L (22-28) H 12/07/18 15:46 VBG O2 Sat (Calc) 96.9 % (40-65) H 12/07/18 15:46 VBG Base Excess 3.2 mmol/L (0.0-2.0) H 12/07/18 15:46 VBG Potassium 3.7 mmol/L (3.6-5.2) 12/07/18 15:46 Sodium 137.0 mmol/L (132-148) 12/07/18 15:46 Chloride 106.0 mmol/L (98-107) 12/07/18 15:46 Glucose 91 mg/dL (65-105) 12/07/18 15:46 Lactate 1.0 mmol/L (0.7-2.1) 12/07/18 15:46 FiO2 21.0 % 12/07/18 15:46 PT 11.8 Seconds (9.8-13.1) 12/07/18 15:40 INR 1.0 12/07/18 15:40 APTT 38.4 Seconds (25.6-37.1) H 12/07/18 15:40 Troponin I < 0.0120 ng/mL (0.00-0.120) 12/07/18 15:40 Total Bilirubin 0.5 mg/dl (0.2-1.3) 12/07/18 15:40 AST 33 U/L (14-36) 12/07/18 15:40 ALT 36 U/L (9-52) 12/07/18 15:40 Alkaline Phosphatase 82 U/L (38-126) 12/07/18 15:40 Total Protein 7.8 G/DL (6.3-8.2) 12/07/18 15:40 Albumin 4.4 g/dL (3.5-5.0) 12/07/18 15:40 Globulin 3.4 gm/dL (2.2-3.9) 12/07/18 15:40 Albumin/Globulin Ratio 1.3 (1.0-2.1) 12/07/18 15:40 - ECG O2 Sat by Pulse Oximetry: 98 <Duong Carvajal III - Last Filed: 12/07/18 19:29> Medical Decision Making Medical Decision Making: Time: 1700 --Patient endorsed to provider by Dr. Barragan. Pending repeat EKG at 1930 then crisis evaluation. labs unremarkable Utox neg 645p admit Dr Hunter per crisis, awaiting repeat EKG 730p for med clearance, endorsed Dr Hartley repeat ekg NSR at 89bpm w QTc 450 QRS 370 medically stable for crisis admission at this time Scribe Attestation: Documented by Chantel Blake, acting as a scribe for Duong Carvajal III, DO. Provider Scribe Attestation: All medical record entries made by the Scribe were at my direction and personally dictated by me. I have reviewed the chart and agree that the record accurately reflects my personal performance of the history, physical exam, medical decision making, and the department course for this patient. I have also personally directed, reviewed, and agree with the discharge instructions and disposition. <Duong Carvajal III - Last Filed: 12/07/18 19:29> Disposition <Suzy Molina - Last Filed: 12/07/18 19:19> - POA Present On Arrival: None - Disposition Disposition: Transfer of Care Disposition Time: 18:56 Patient Signed Over To: Alfonso Hartley Handoff Comments: pending repeat EKG and admit psych <Duong Carvajal III - Last Filed: 12/07/18 19:29> - Clinical Impression Clinical Impression: Overdose, Depression - Disposition Condition: STABLE Forms: [employer] ([place]akh)
[2018-12-07] MEDS ORDERED: Alum-Mag Hydrox-Simethicone Susp (30 mL) PO PRN (22:05)
[2018-12-07] MEDS ORDERED: DiphenhydrAMINE 50 mg/ml Inj IM PRN (22:05)
[2018-12-07] MEDS ORDERED: Magnesium Hydroxide Susp 30 ml UD PO PRN (22:05)
--- NOTE | 2018-12-07 22:53 | PCM.BM ---
<RajendraGary - Last Filed: 12/07/18 22:51> Treatment Plan Problems - Problems identified on initial assessmt Suicidal Ideation Date Initiated: 12/07/18 Time Initiated: 22:51 Assessment reference: NA Status: Active Priority: 1 Self Care Deficit Date Initiated: 12/07/18 Time Initiated: 22:51 Assessment reference: NA Status: Active Priority: 2 Activity Intolerance Date Initiated: 12/07/18 Time Initiated: 22:52 Assessment reference: NA Status: Active Priority: 3 Social Isolation Date Initiated: 12/07/18 Time Initiated: 22:52 Assessment reference: NA Status: Active Priority: 4 Hopelessness/Helplessness Date Initiated: 12/07/18 Time Initiated: 22:52 Assessment reference: NA Status: Active Priority: 5 Treatment assets and liabiliti Patient Assests: negotiates basic needs, cognitively intact Patient Liabilities: live alone, physical pain, medical problems - Milieu Protocol Maintain good personal hygiene: daily Encourage regular showers, daily Remind patient to perform daily oral care, daily Assist patient to perform ADL's Conduct patient checks and document Observation sheet: Q15 minutes Maintain personal safety: every shift Educate patient to report safety concerns to staff, every shift Monitor environment for contraband/sharps Medication safety: Monitor for expected outcome, potential side effects: every shift, Assess barriers to learning: every shift, Assess readiness for medication education: every shift <Mallika Osborneana Nancy - Last Filed: 12/13/18 07:46> Family Contact Family involvement: Family/SO is involved Family contact: Patient agrees to contact, Family has been contacted by patient, Telephone contact initiated by staff Family contact name: Yousuf Hernández - son Family contacted how many times per week?: 1 - Outside Agency [facility] Care involvment: Information-sharing Agency contact number: [phone] [facility] Care involvment: Information-sharing Agency contact name: Dr. Monzon Agency contact number: [phone] - Goals for Treatment Patient goals for treatment: Pt will improve overall mood. Pt will be compliant with medications. Pt will be free of suicidal thoughts. Discharge/Continuing Care - Education Needs Education Needs: Family Medication, Family Coping Skills, Family Anger Management skills, Family Community resources, Family Activities of Daily Living, Family Pain, Family Nutrition, Family Uses of Medical Equipment, Family Health Practices/Safety, Family Aftercare Safety Plan, Patient Medication, Kristine ent Coping Skills, Patient Anger Management skills, Patient Community resources, Patient Activities of Daily Living, Patient Pain, Patient Nutrition, Patient Uses of Medical Equipment, Patient Health Practices/Safety, Patient Aftercare Safety Plan - Discharge Discharge Criteria: Tolerates medication w/o severe side effects, Free of Suicidal thoughts, Normal sleep pattern, Ability to care for self, Reduction of target symptoms Discharge to:: Home, With Family - Additional Comments 12/13/18 07:43 LATE ENTRY FROM 12/12/2018 Pt seen and discussed in team meeting. Reason for admission reviewed and discussed. Pt's progress on the unit reviewed and discussed. Pt reported feeling "great." Pt scheduled for discharge this afternoon, 12/12/2018. Pt reported no concerns with returning home. Pt denied SI and HI. Pt denied AVH. Pt denied any paranoia. Pt advised that she is scheduled to follow up with Dr. Na MD on 12/21/2018 at 3pm. Pt verbalized understanding of same. Pt's medications reviewed and discussed. Pt provided with psycho-education regarding tx and medication compliance. - Treatment Team Participation Discussed with Family/SO: No Was Patient/Family/SO present at Treatment Team Meeting: Yes
[2018-12-07] MEDS: Magnesium Oxide 400 mg Tab UD PO SCH (22:55)
[2018-12-07] MEDS: Naproxen 500 MG TAB PO SCH (22:57)
[2018-12-08 02:32] VITALS: O2SAT 97
[2018-12-08] MEDS: Magnesium Oxide 400 mg Tab UD PO SCH ×2 (09:16→18:00)
[2018-12-08] MEDS: Naproxen 500 MG TAB PO SCH ×2 (09:18→21:11)
[2018-12-08] MEDS: Pantoprazole 40 mg EC Tab PO SCH (09:23)
[2018-12-08 10:00] LABS: BASO # 0.1 K/uL (0.0-0.2); BASO % 1.1 % (0.0-2.0); EOS # 0.2 K/uL (0.0-0.7); EOS % 4.8 % (0.0-4.0); HEMOGLOBIN 13.9 g/dL (12.0-16.0); LYMPH # 1.4 K/uL (1.0-4.3); LYMPH % 27.4 % (20.0-40.0); MEAN CELL VOLUME 84.9 fl (81.0-99.0); MEAN CORPUSCULAR HEMOGLOBIN 28.2 pg (27.0-31.0); MEAN CORPUSCULAR HGB CONC 33.2 g/dL (33.0-37.0); MEAN PLATELET VOLUME 8.3 fl (7.2-11.7); MONO # 0.6 K/uL (0.0-0.8); MONO % 11.4 % (0.0-10.0); NEUT # 2.8 K/uL (1.8-7.0); NEUT % 55.3 % (50.0-75.0); NRBC % 0.2 % (0.0-0.0); RBC 4.93 Mil/uL (3.80-5.20); RED CELL DISTRIBUTION WIDTH 13.9 % (11.5-14.5); WHITE BLOOD COUNT 5.1 K/uL (4.8-10.8)
[2018-12-08 10:31] LABS: ALB/GLOB RATIO 1.2 (1.0-2.1); ALBUMIN 3.9 g/dL (3.5-5.0); ALT/SGPT 33 U/L (9-52); AST/SGOT 24 U/L (14-36); BLOOD UREA NITROGEN 18 mg/dl (7-17); CALCIUM 9.1 mg/dL (8.4-10.2); GFR NON-AFRICAN AMERICAN > 60; HDL CHOLESTEROL 38 MG/DL (30-70)
[2018-12-08 10:36] LABS: LDL CHOLESTEROL 104 mg/dL (0-129)
[2018-12-08 10:39] LABS: T4 10.1 ug/dl (5.5-11.0)
--- NOTE | 2018-12-08 11:34 | CP.PCM.CON ---
<BasilioAnto - Last Filed: 12/08/18 17:31> History of Present Illness - History of Present Illness History of Present Illness: CONSULT NOTE FOR HOSPITALIST 53 y/o F with a PMHx of Lyme Disease Stage II with Neuropathy, Migraines, Depression, Anxiety was admitted to psych unit for evaluation and management of depression after an suicidal attempt. Pt states she was thinking about killing herself with a knife in her throat or by taking pills (Clonazepam). Pt complains of generalized arthralgias and back pain. Pt reports she takes a muscle relaxant, skelaxin, intermittently for muscle spasm. Pt denies chills, chest pain, SOB, nausea, vomiting, abdominal pain or acid reflux. PMD:Dr. Yves Hart PMHx: Lyme Disease Stage II with Neuropathy, Migraines, Depression, Anxiety, chronic back pain, sciatica, osteoporosis, arthritis PSHx: bilateral ankle orthopedic surgeries, ovarian tumor resection and cholecystectomy FHx: NC SHx: Denies alcohol, rec drugs or smoking. Review of Systems - Constitutional Constitutional: absent: Chills, Fever, Night Sweats, Weight Loss - EENT Nose/Mouth/Throat: absent: Dry Mouth, Sore Throat, Tongue Swelling - Cardiovascular Cardiovascular: absent: Chest Pain, Diaphoresis, Dyspnea - Respiratory Respiratory: absent: Cough, Dyspnea, Hemoptysis - Gastrointestinal Gastrointestinal: absent: Abdominal Pain, Constipation, Cramping, Nausea, Vomiting Past Patient History - Infectious Disease Hx of Infectious Diseases: None - Past Medical History & Family History Past Medical History?: Yes - Past Social History Smoking Status: Light Smoker < 10 Cigarettes Daily - CARDIAC Hx Hypertension: No - PULMONARY Hx Asthma: Yes (Pt denies) Hx Chronic Obstructive Pulmonary Disease (COPD): Yes - NEUROLOGICAL Hx Migraine: Yes (As per patient) Hx Seizures: No - HEMATOLOGICAL/ONCOLOGICAL Hx Human Immunodeficiency Virus (HIV): No - MUSCULOSKELETAL/RHEUMATOLOGICAL Hx Arthritis: Yes Hx Fractures: Yes Hx Osteoporosis: Yes Hx Rheumatoid Arthritis: Yes - GASTROINTESTINAL Hx Gastroesophageal Reflux: Yes - GENITOURINARY/GYNECOLOGICAL Hx Sexually Transmitted Disorders: No - PSYCHIATRIC Hx Substance Use: No (as per pt) - SURGICAL HISTORY Hx Cholecystectomy: Yes Hx Tonsillectomy: Yes - ANESTHESIA Hx Anesthesia: Yes Hx Anesthesia Reactions: No Meds Allergies/Adverse Reactions: Allergies Allergy/AdvReac Type Severity Reaction Status Date / Time No Known Allergies Allergy Verified 12/07/18 15:00 - Medications Medications: Current Medications Acetaminophen (Tylenol 325mg Tab) 650 mg PO Q4 PRN PRN Reason: Other Al Hydrox/Mg Hydrox/Simethicone (Maalox Plus 30 Ml) 30 ml PO Q4 PRN PRN Reason: Dyspepsia Diphenhydramine HCl (Benadryl) 50 mg IM Q6 PRN PRN Reason: Extrapyramidal S/S Unable PO Diphenhydramine HCl (Benadryl) 50 mg PO Q6 PRN PRN Reason: Extrapyramidal Symptoms Diphenhydramine HCl (Benadryl) 50 mg PO HS PRN PRN Reason: Sleep Duloxetine HCl (Cymbalta) 60 mg PO HS [facility] Last Admin: 12/07/18 22:55 Dose: 60 mg Fluticasone Propionate (Flonase) 1 spr MATILDA BID [facility] Last Admin: 12/08/18 09:15 Dose: 1 spr Gabapentin (Neurontin) 300 mg PO HS [facility] Last Admin: 12/07/18 22:56 Dose: 300 mg Haloperidol (Haldol) 5 mg PO Q4 PRN PRN Reason: Agitation Haloperidol Lactate (Haldol) 5 mg IM Q4 PRN PRN Reason: Agitation, Unable to Take PO Ibuprofen (Motrin Tab) 600 mg PO Q6 PRN PRN Reason: Fever >100.4 F Lorazepam (Ativan) 1 mg IM Q8 PRN PRN Reason: Anxiety/Agitation,Unable PO Lorazepam (Ativan) 1 mg PO Q8 PRN PRN Reason: Anxiety/Agitation Last Admin: 12/07/18 23:01 Dose: 1 mg Magnesium Hydroxide (Milk Of Magnesia) 30 ml PO HS PRN PRN Reason: Constipation Magnesium Oxide (Mag-Ox) 400 mg PO BID [facility] Last Admin: 12/08/18 09:16 Dose: 400 mg Naproxen (Naproxen) 500 mg PO Q12 [facility] Last Admin: 12/08/18 09:18 Dose: Not Given Pantoprazole Sodium (Protonix Ec Tab) 40 mg PO DAILY [facility] Last Admin: 12/08/18 09:23 Dose: 40 mg Physical Exam - Constitutional Appears: No Acute Distress Additional comments: resting on bed, trembling, anxious looking. - Head Exam Head Exam: ATRAUMATIC, NORMAL INSPECTION - Eye Exam Eye Exam: EOMI - ENT Exam ENT Exam: Mucous Membranes Moist - Neck Exam Neck exam: Positive for: Full Rom, Normal Inspection. Negative for: Meningismus - Respiratory Exam Respiratory Exam: NORMAL BREATHING PATTERN. absent: Rhonchi, Wheezes, Respiratory Distress - Cardiovascular Exam Cardiovascular Exam: REGULAR RHYTHM, +S1, +S2 - GI/Abdominal Exam GI & Abdominal Exam: Normal Bowel Sounds, Soft. absent: Diminished Bowel Sounds, Distended, Guarding, Rebound, Tenderness - Extremities Exam Extremities exam: Positive for: full ROM, normal inspection. Negative for: calf tenderness, pedal edema - Neurological Exam Neurological exam: Alert - Psychiatric Exam Psychiatric exam: Anxious Results - Vital Signs Recent Vital Signs: Last Vital Signs Temp 98.1 F 12/08/18 06:00 Pulse 86 12/08/18 06:00 Resp 18 12/08/18 06:00 BP 117/74 12/08/18 06:00 Pulse Ox 97 12/07/18 20:35 - Labs Result Diagrams: 12/08/18 09:00 12/08/18 09:00 Labs: Laboratory Results - last 24 hr 12/07/18 12/07/18 12/07/18 15:24 15:40 15:40 WBC 8.5 RBC 5.16 Hgb 14.8 Hct 44.0 MCV 85.2 MCH 28.6 MCHC 33.6 RDW 14.2 Plt Count 299 MPV 8.3 Neut % (Auto) 70.4 Lymph % (Auto) 16.6 L Morris % (Auto) 9.2 Eos % (Auto) 2.6 Baso % (Auto) 1.2 Neut # (Auto) 6.0 Lymph # (Auto) 1.4 Morris # (Auto) 0.8 Eos # (Auto) 0.2 Baso # (Auto) 0.1 PT INR APTT pO2 VBG pH VBG pCO2 VBG HCO3 VBG Total CO2 VBG O2 Sat (Calc) VBG Base Excess VBG Potassium Glucose Lactate FiO2 Sodium 140 Potassium 4.1 Chloride 101 Carbon Dioxide 25 Anion Gap 18 BUN 19 H Creatinine 0.8 Est GFR ( Amer) > 60 Est GFR (Non-Af Amer) > 60 POC Glucose (mg/dL) 99 Random Glucose 94 Calcium 9.8 Total Bilirubin 0.5 AST 33 ALT 36 Alkaline Phosphatase 82 Troponin I < 0.0120 Total Protein 7.8 Albumin 4.4 Globulin 3.4 Albumin/Globulin Ratio 1.3 Triglycerides Cholesterol LDL Cholesterol Direct HDL Cholesterol Thyroxine (T4) TSH 3rd Generation Venous Blood Potassium Urine Color Urine Clarity Urine pH Ur Specific [place] Urine Protein Urine Glucose (UA) Urine Ketones Urine Blood Urine Nitrate Urine Bilirubin Urine Urobilinogen Ur Leukocyte Esterase Urine RBC (Auto) Urine Microscopic WBC Ur Squamous Epith Cells Urine Bacteria Salicylates Urine Opiates Screen Urine Methadone Screen Acetaminophen Ur Barbiturates Screen Ur Phencyclidine Scrn Ur Amphetamines Screen U Benzodiazepines Scrn U Oth Cocaine Metabols U Cannabinoids Screen Alcohol, Quantitative < 10 Influenza Typ A,B (EIA) 12/07/18 12/07/18 12/07/18 15:40 15:40 15:46 WBC RBC Hgb Hct MCV MCH MCHC RDW Plt Count MPV Neut % (Auto) Lymph % (Auto) Morris % (Auto) Eos % (Auto) Baso % (Auto) Neut # (Auto) Lymph # (Auto) Morris # (Auto) Eos # (Auto) Baso # (Auto) PT 11.8 INR 1.0 APTT 38.4 H pO2 62 H VBG pH 7.41 VBG pCO2 45 VBG HCO3 27.3 VBG Total CO2 29.9 H VBG O2 Sat (Calc) 96.9 H VBG Base Excess 3.2 H VBG Potassium 3.7 Glucose 91 Lactate 1.0 FiO2 21.0 Sodium 137.0 Potassium Chloride 106.0 Carbon Dioxide Anion Gap BUN Creatinine Est GFR ( Amer) Est GFR (Non-Af Amer) POC Glucose (mg/dL) Random Glucose Calcium Total Bilirubin AST ALT Alkaline Phosphatase Troponin I Total Protein Albumin Globulin Albumin/Globulin Ratio Triglycerides Cholesterol LDL Cholesterol Direct HDL Cholesterol Thyroxine (T4) TSH 3rd Generation Venous Blood Potassium 3.7 Urine Color Urine Clarity Urine pH Ur Specific [place] Urine Protein Urine Glucose (UA) Urine Ketones Urine Blood Urine Nitrate Urine Bilirubin Urine Urobilinogen Ur Leukocyte Esterase Urine RBC (Auto) Urine Microscopic WBC Ur Squamous Epith Cells Urine Bacteria Salicylates < 1.0 Urine Opiates Screen Urine Methadone Screen Acetaminophen < 10.0 L Ur Barbiturates Screen Ur Phencyclidine Scrn Ur Amphetamines Screen U Benzodiazepines Scrn U Oth Cocaine Metabols U Cannabinoids Screen Alcohol, Quantitative Influenza Typ A,B (EIA) 12/07/18 12/07/18 12/07/18 16:19 16:19 16:21 WBC RBC Hgb Hct MCV MCH MCHC RDW Plt Count MPV Neut % (Auto) Lymph % (Auto) Morris % (Auto) Eos % (Auto) Baso % (Auto) Neut # (Auto) Lymph # (Auto) Morris # (Auto) Eos # (Auto) Baso # (Auto) PT INR APTT pO2 VBG pH VBG pCO2 VBG HCO3 VBG Total CO2 VBG O2 Sat (Calc) VBG Base Excess VBG Potassium Glucose Lactate FiO2 Sodium Potassium Chloride Carbon Dioxide Anion Gap BUN Creatinine Est GFR ( Amer) Est GFR (Non-Af Amer) POC Glucose (mg/dL) Random Glucose Calcium Total Bilirubin AST ALT Alkaline Phosphatase Troponin I Total Protein Albumin Globulin Albumin/Globulin Ratio Triglycerides Cholesterol LDL Cholesterol Direct HDL Cholesterol Thyroxine (T4) TSH 3rd Generation Venous Blood Potassium Urine Color Yellow Urine Clarity Clear Urine pH 7.0 Ur Specific [place] 1.016 Urine Protein Negative Urine Glucose (UA) Neg Urine Ketones Negative Urine Blood Small Urine Nitrate Negative Urine Bilirubin Small Urine Urobilinogen 0.2-1.0 Ur Leukocyte Esterase Neg Urine RBC (Auto) 4 H Urine Microscopic WBC 1 Ur Squamous Epith Cells 2 Urine Bacteria Rare Salicylates Urine Opiates Screen Negative Urine Methadone Screen Negative Acetaminophen Ur Barbiturates Screen Negative Ur Phencyclidine Scrn Negative Ur Amphetamines Screen Negative U Benzodiazepines Scrn Negative U Oth Cocaine Metabols Negative U Cannabinoids Screen Negative Alcohol, Quantitative Influenza Typ A,B (EIA) Negative for flu a/b 12/08/18 12/08/18 09:00 09:00 WBC 5.1 RBC 4.93 Hgb 13.9 Hct 41.9 MCV 84.9 MCH 28.2 MCHC 33.2 RDW 13.9 Plt Count 295 MPV 8.3 Neut % (Auto) 55.3 Lymph % (Auto) 27.4 Morris % (Auto) 11.4 H Eos % (Auto) 4.8 H Baso % (Auto) 1.1 Neut # (Auto) 2.8 Lymph # (Auto) 1.4 Morris # (Auto) 0.6 Eos # (Auto) 0.2 Baso # (Auto) 0.1 PT INR APTT pO2 VBG pH VBG pCO2 VBG HCO3 VBG Total CO2 VBG O2 Sat (Calc) VBG Base Excess VBG Potassium Glucose Lactate FiO2 Sodium 139 Potassium 4.2 Chloride 103 Carbon Dioxide 27 Anion Gap 13 BUN 18 H Creatinine 0.6 L Est GFR ( Amer) > 60 Est GFR (Non-Af Amer) > 60 POC Glucose (mg/dL) Random Glucose 95 Calcium 9.1 Total Bilirubin 0.2 AST 24 ALT 33 Alkaline Phosphatase 80 Troponin I Total Protein 7.0 Albumin 3.9 Globulin 3.1 Albumin/Globulin Ratio 1.2 Triglycerides 83 D Cholesterol 182 LDL Cholesterol Direct 104 HDL Cholesterol 38 Thyroxine (T4) 10.1 TSH 3rd Generation 0.98 Venous Blood Potassium Urine Color Urine Clarity Urine pH Ur Specific [place] Urine Protein Urine Glucose (UA) Urine Ketones Urine Blood Urine Nitrate Urine Bilirubin Urine Urobilinogen Ur Leukocyte Esterase Urine RBC (Auto) Urine Microscopic WBC Ur Squamous Epith Cells Urine Bacteria Salicylates Urine Opiates Screen Urine Methadone Screen Acetaminophen Ur Barbiturates Screen Ur Phencyclidine Scrn Ur Amphetamines Screen U Benzodiazepines Scrn U Oth Cocaine Metabols U Cannabinoids Screen Alcohol, Quantitative Influenza Typ A,B (EIA) Assessment & Plan - Assessment and Plan (Free Text) Assessment: 53 y/o F with a PMHx of Lyme Disease Stage II with Neuropathy, Migraines, osteo rathritis, chronic back pain, Depression, Anxiety admitted to psych unit for evaluation of depression and suicidal ideation/?attempt. PLAN: >Depression/Anxiety state --Pt medically stable to continue management as per psychiatry team >Chronic back pain/Osteorathritis//Chronic Back pain --Continue pain managemetn as ordered. --Flexeril 5mg PO TID PRN >Hx of Lyme disease with neuropathy --Homeds resumed Case discussed with Dr Box Hospitalist [place] PGY-2 - Date & Time Date: 12/08/18 Time: 14:00 <Lili Box - Last Filed: 12/11/18 08:24> Meds - Medications Medications: Current Medications Acetaminophen (Tylenol 325mg Tab) 650 mg PO Q4 PRN PRN Reason: Other Al Hydrox/Mg Hydrox/Simethicone (Maalox Plus 30 Ml) 30 ml PO Q4 PRN PRN Reason: Dyspepsia Cyclobenzaprine HCl (Flexeril) 5 mg PO Q8 PRN PRN Reason: Muscle spasm Last Admin: 12/10/18 20:06 Dose: 5 mg Diphenhydramine HCl (Benadryl) 50 mg IM Q6 PRN PRN Reason: Extrapyramidal S/S Unable PO Diphenhydramine HCl (Benadryl) 50 mg PO Q6 PRN PRN Reason: Extrapyramidal Symptoms Diphenhydramine HCl (Benadryl) 50 mg PO HS PRN PRN Reason: Sleep Duloxetine HCl (Cymbalta) 60 mg PO HS [facility] Last Admin: 12/10/18 21:18 Dose: 60 mg Fluticasone Propionate (Flonase) 1 spr MATILDA BID [facility] Last Admin: 12/10/18 17:01 Dose: 1 spr Gabapentin (Neurontin) 300 mg PO HS [facility] Last Admin: 12/10/18 21:20 Dose: 300 mg Guaifenesin (Robitussin) 100 mg PO Q4 PRN PRN Reason: Cough Last Admin: 12/09/18 08:37 Dose: 100 mg Guaifenesin/Dextromethorphan (Mucinex-Dm 600-30 Mg) 1 tab PO BID PRN PRN Reason: congestion Haloperidol (Haldol) 5 mg PO Q4 PRN PRN Reason: Agitation Haloperidol Lactate (Haldol) 5 mg IM Q4 PRN PRN Reason: Agitation, Unable to Take PO Lorazepam (Ativan) 1 mg IM Q8 PRN PRN Reason: Anxiety/Agitation,Unable PO Lorazepam (Ativan) 1 mg PO Q8 PRN PRN Reason: Anxiety/Agitation Last Admin: 12/10/18 21:36 Dose: 1 mg Magnesium Hydroxide (Milk Of Magnesia) 30 ml PO HS PRN PRN Reason: Constipation Magnesium Oxide (Mag-Ox) 400 mg PO BID [facility] Last Admin: 12/10/18 17:00 Dose: 400 mg Naproxen (Naproxen) 500 mg PO Q12 [facility] Last Admin: 12/10/18 21:18 Dose: 500 mg Pantoprazole Sodium (Protonix Ec Tab) 40 mg PO DAILY [facility] Last Admin: 12/10/18 08:33 Dose: 40 mg Results - Vital Signs Recent Vital Signs: Last Vital Signs Temp 97.3 F L 12/11/18 05:50 Pulse 87 12/11/18 05:50 Resp 19 12/11/18 05:50 BP 101/69 12/11/18 05:50 Pulse Ox 97 12/07/18 20:35 - Labs Result Diagrams: 12/08/18 09:00 12/08/18 09:00 Attending/Attestation - Attestation I have personally seen and examined this patient.: Yes I have fully participated in the care of the patient.: Yes I have reviewed all pertinent clinical information: Yes Notes (Text): 12/11/18 08:24 agree with findings and plan as above.
[2018-12-08] MEDS: guaiFENesin 100 mg/5 ml Syrup UD PO PRN (13:47)
--- NOTE | 2018-12-08 18:28 | PCM.PYCHPN ---
Psychiatric Progress Note - Psychiatric Progress Note Patient seen today, length of contact: chart reviewed case discussed with team, pt seen Patient Chief Complaint: feeling depressed , overwhelmed with multiple medical illnesses, feeling down was having suicidal ideations. Problems Identified/Issues Discussed: pt came to unit for depression, suicidal ideation 2nd mutilple medical illnesses including reported lupus, trouble sleeping, having cough, chest congestion with scant clear phlegm, denies fevers chills sweats diarrhea, uses walker for ambulation Medical Problems: pt chart Diagnostic Results: per psychiatry per medicine per nursing per healthcare social worker DSM 5 Symptoms Update: some improvement mood depression some trouble sleeping Medication Change: Yes (mucinex dm prn congestion ) Medical Record Reviewed: Yes Consults ordered or reviewed: pt seen by medical provider Mental Status Examination - Cognitive Function Orientation: Person, Place, Situation, Time Memory: Intact Attention: WNL Concentration: WNL Association: WNL Fund of Knowledge: [facility] Decription of patient's judgement and insights: impaired - Mood Mood: Depressed - Affect Affect: Constricted - Speech Speech: Soft - Formal Thought Process Formal Thought Process: No Impairment - Suicidal Ideation Suicidal Ideation: Yes Plan: no plan reports just wants help to continue to feel better - Homicidal Ideation Homicidal Ideation: No Goal/Treatment Plan - Goal/Treatment Plan Need for Continued Stay: Severe depression anxiety, Discharge may exacerbated symptoms, Severe functional impairment Progress Toward Problem(s) and Goals/Treatment Plan: inpt milieu adjust meds per status mucinex dm prn for congestion naprosyn ec 500mg po q12 prn pain joint prefers over ibuprofin-do not take on an empty stomach vital signs and clinical assessment per protocol and per clinical status falls precautions Estimated Date of D/C: 12/14/18 - Smoking Cessation Smoking Cessation Initiated: No Reason for not providing: pt defers
[2018-12-08] MEDS ORDERED: guaiFENesin-DM 600-30 mg ER Tab PO PRN (18:56)
--- NOTE | 2018-12-09 01:24 | CARD ---
APPROVED REPORT Date of service: 12/07/2018 EKG Measurement Heart [id number] <Conclusion> Normal sinus rhythm Nonspecific T wave abnormality Abnormal ECG
--- NOTE | 2018-12-09 01:25 | CARD ---
APPROVED REPORT Date of service: 12/07/2018 EKG Measurement Heart [id number] <Conclusion> Normal sinus rhythm Nonspecific T wave abnormality Abnormal ECG
[2018-12-09] MEDS: guaiFENesin 100 mg/5 ml Syrup UD PO PRN (08:37)
[2018-12-09] MEDS: Pantoprazole 40 mg EC Tab PO SCH (08:37)
[2018-12-09] MEDS: Magnesium Oxide 400 mg Tab UD PO SCH ×2 (08:38→16:50)
[2018-12-09] MEDS: Naproxen 500 MG TAB PO SCH ×2 (08:38→21:01)
--- NOTE | 2018-12-09 20:06 | PCM.PYCHPN ---
Psychiatric Progress Note - Psychiatric Progress Note Patient seen today, length of contact: chart reviewed case discussed with team, pt seen Patient Chief Complaint: feeling somewhat depressed, is beginning to process overwhlemed with medical illnesses and decreased lof , reports hope for future, no suicidal ideaions. Problems Identified/Issues Discussed: seen at nursing station interacting with staff, appears to be smiling somewhat reports slept somewhat better, neck is with less pain , coughing less. staff report pt rx adherent, seen about in [facility] interacting with peers. Medical Problems: pt chart Diagnostic Results: per psychiatry per medicine per nursing per bilingual social worker DSM 5 Symptoms Update: somewhat improving mood, sleep, decreased congestion, neck pain Medication Change: Yes (d/c ibuprofin, start naprosyn 500mg po q12 hrs prn pain with food) Medical Record Reviewed: Yes Consults ordered or reviewed: pt seen by medical provider Mental Status Examination - Cognitive Function Orientation: Person, Place, Situation, Time Memory: Intact Attention: WNL Concentration: WNL Association: WNL Fund of Knowledge: WNL Decription of patient's judgement and insights: impaired - Mood Mood: Depressed Additional comments: reports somewhat less, smiles more compared to yesterday - Affect Affect: Constricted - Speech Speech: Soft - Formal Thought Process Formal Thought Process: No Impairment - Suicidal Ideation Suicidal Ideation: Yes - Homicidal Ideation Homicidal Ideation: No Goal/Treatment Plan - Goal/Treatment Plan Need for Continued Stay: Severe depression anxiety, Discharge may exacerbated symptoms, Severe functional impairment Progress Toward Problem(s) and Goals/Treatment Plan: inpt milieu adjust meds per status Falls precautions vital signs and clinical assessment per protocol and per clinical status falls precautions Estimated Date of D/C: 12/14/18 - Smoking Cessation Smoking Cessation Initiated: No Reason for not providing: defers
[2018-12-10] MEDS: Pantoprazole 40 mg EC Tab PO SCH (08:33)
[2018-12-10] MEDS: Naproxen 500 MG TAB PO SCH ×2 (08:33→21:18)
[2018-12-10] MEDS: Magnesium Oxide 400 mg Tab UD PO SCH ×2 (08:36→17:00)
--- NOTE | 2018-12-10 20:35 | PCM.PYCHPN ---
Psychiatric Progress Note - Psychiatric Progress Note Patient seen today, length of contact: chart reviewed case discussed with team, pt seen Patient Chief Complaint: feeling somewhat depressed, is beginning to process overwhlemed with medical illnesses and decreased lof , reports hope for future, no suicidal ideaions. Problems Identified/Issues Discussed: seen at nursing station interacting with staff, appears to be smiling somewhat reports slept somewhat better, neck is with less pain , coughing less. staff report pt rx adherent, seen about in [facility] interacting with peers. Medical Problems: pt chart Diagnostic Results: per psychiatry per medicine per nursing per social work specialist DSM 5 Symptoms Update: less depressed processes possible attempt to get attention Medication Change: No Medical Record Reviewed: Yes Mental Status Examination - Cognitive Function Orientation: Person, Place, Situation, Time Memory: Intact Attention: WNL Concentration: WNL Association: WNL Fund of Knowledge: WN Decription of patient's judgement and insights: impaired - Mood Mood: Depressed - Affect Affect: Constricted - Speech Speech: Soft - Formal Thought Process Formal Thought Process: No Impairment - Suicidal Ideation Suicidal Ideation: Yes - Homicidal Ideation Homicidal Ideation: No Goal/Treatment Plan - Goal/Treatment Plan Need for Continued Stay: Severe depression anxiety, Discharge may exacerbated symptoms, Severe functional impairment Progress Toward Problem(s) and Goals/Treatment Plan: inpt milieu adjust meds per status Falls precautions vital signs and clinical assessment per protocol and per clinical status falls precautions Estimated Date of D/C: 12/14/18 - Smoking Cessation Smoking Cessation Initiated: No Reason for not providing: pt defers
[2018-12-11] MEDS: Magnesium Oxide 400 mg Tab UD PO SCH ×2 (08:52→16:40)
[2018-12-11] MEDS: Naproxen 500 MG TAB PO SCH ×2 (08:52→21:02)
[2018-12-11] MEDS: Pantoprazole 40 mg EC Tab PO SCH (08:53)
--- NOTE | 2018-12-11 17:00 | PCM.PYCHPN ---
Psychiatric Progress Note - Psychiatric Progress Note Patient seen today, length of contact: chart reviewed case discussed with team, pt seen Patient Chief Complaint: reports some anxiety trouble sleeping neck tension evening/hs prior to admission was receiving clonazepam at home with decreased anxiety and less neck tension. pt was also taking calcium supplements daily prior to admission. currently feel less anxious, seen about unit feeling somewhat depressed, is beginning to process overwhlemed with medical illnesses and decreased lof , reports hope for future, no suicidal ideaions. Problems Identified/Issues Discussed: seen at nursing station interacting with staff, appears to be smiling somewhat reports slept somewhat better, neck is with less pain , coughing less. staff report pt rx adherent, seen about in [facility] interacting with peers. Medical Problems: pt chart Diagnostic Results: per psychiatry per medicine per nursing per social service liaison DSM 5 Symptoms Update: some improvement in mood, anxiety at hs-anxiety previously received clonozepam hs when home Medication Change: No Medical Record Reviewed: Yes Consults ordered or reviewed: pt being followed by medical provider Mental Status Examination - Cognitive Function Orientation: Person, Place, Situation, Time Memory: Intact Attention: WNL Concentration: WNL Association: WNL Fund of Knowledge: [facility] Decription of patient's judgement and insights: impaired - Mood Mood: Depressed - Affect Affect: Constricted - Speech Speech: Soft - Formal Thought Process Formal Thought Process: No Impairment - Suicidal Ideation Suicidal Ideation: Yes - Homicidal Ideation Homicidal Ideation: No Goal/Treatment Plan - Goal/Treatment Plan Need for Continued Stay: Severe depression anxiety, Discharge may exacerbated symptoms, Severe functional impairment, Other Progress Toward Problem(s) and Goals/Treatment Plan: inpt milieu adjust meds per status start clonozepam hs as per home meds as well as calcium supplement Falls precautions vital signs and clinical assessment per protocol and per clinical status falls precautions Estimated Date of D/C: 12/14/18 - Smoking Cessation Smoking Cessation Initiated: No Reason for not providing: pt defers
[2018-12-11] MEDS ORDERED: Calcium-Vit D 500 mg-200 Units Tab UD PO SCH (22:00)
[2018-12-12 06:03] VITALS: BP 113/80; PULSE 80; RESP 18; TEMP 98.1
[2018-12-12] MEDS: Magnesium Oxide 400 mg Tab UD PO SCH (08:56)
[2018-12-12] MEDS: Naproxen 500 MG TAB PO SCH (08:58)
[2018-12-12] MEDS: Pantoprazole 40 mg EC Tab PO SCH (08:58)
== END 2018-12-12 10:45 | disposition home or self-care (01) | DRG 884 ==
LOC: H.ER 14:58 → H.ERHOLD 19:29 → H.STEP 21:01
PROVIDERS: ADMIT Psychiatry & Neurology Psychiatry; ATTEND Psychiatry & Neurology Psychiatry
PROC: GZHZZZZ Group Psychotherapy (ICD-10-PCS; principal; 2018-12-07)
PROC: GZ58ZZZ Individual Psychotherapy, Cognitive-Behavioral (ICD-10-PCS; 2018-12-07)
DX: F06.31 Mood disorder due to known physiological condition with depressive features (principal); Z91.5 Personal history of self-harm; F41.9 Anxiety disorder, unspecified; G89.29 Other chronic pain; M54.5 Low back pain; M06.9 Rheumatoid arthritis, unspecified; M81.0 Age-related osteoporosis without current pathological fracture; K21.9 Gastro-esophageal reflux disease without esophagitis; J44.9 Chronic obstructive pulmonary disease, unspecified; G43.909 Migraine, unspecified, not intractable, without status migrainosus; G62.9 Polyneuropathy, unspecified; M19.90 Unspecified osteoarthritis, unspecified site; F17.210 Nicotine dependence, cigarettes, uncomplicated; Z86.19 Personal history of other infectious and parasitic diseases

== ENCOUNTER 2019-01-18 00:09 | Emergency (ER) | payer OTHER ==
[2019-01-18 00:09] VITALS: BMI 31.8
[2019-01-18 00:14] VITALS: O2SAT 99
--- NOTE | 2019-01-18 03:01 | ED PDOC ---
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 Patient reports her whole body was "locked" for 2 hours. She reports feeling a headache and states she took fioricet and started to feel better. Patient denies difficulty breathing. States that she is now able to move her body normally and wishes to go home, but is concerned because she was told she had "inflammation in the brain" and was concerned that it was coming back. Denies vision changes, focal weakness, numbness. States her headaches it throbbing in nature, non thundeclap, not worst headache of her life, and improving after fioricet. PMD: Shaik Marinelli Past Medical History Reviewed: Historical Data, Nursing Documentation, Vital Signs Vital Signs: Last Vital Signs Temp 97.5 F L 01/18/19 00:12 Pulse 86 01/18/19 00:12 Resp 16 01/18/19 00:12 BP 118/86 01/18/19 00:12 Pulse Ox 99 01/18/19 00:12 - Medical History PMH: Anxiety, Arthritis, Asthma (Pt denies), COPD, Depression, Fractures, GERD, Migraine (As per patient), Osteoporosis, Rheumatoid Arthritis Denies: Diabetes, Hepatitis, HIV, HTN, Seizures, Sexually Transmitted Disease Other PMH: Neuro lyme disease - Surgical History Surgical History: Cholecystectomy, Tonsillectomy - Family History Family History: States: Unknown Family Hx - Immunization History Hx Tetanus Toxoid Vaccination: (unk) Hx Influenza Vaccination: No Hx Pneumococcal Vaccination: Yes (2016) - Home Medications Home Medications: Ambulatory Orders Medication Instructions Recorded Calcium Carbonate/Vitamin D3 1 tab PO HS 07/13/17 [Caltrate 600 Plus D3 Tablet] DULoxetine [Cymbalta] 60 mg PO HS 07/13/17 Esomeprazole Magnesium [Nexium 40 mg PO HS 07/13/17 24Hr] Gabapentin [Neurontin] 300 mg PO HS 07/13/17 Meloxicam [Mobic] 15 mg PO HS 07/13/17 clonazePAM [Klonopin] 1 mg PO HS 07/13/17 Fluticasone Nasal [Flonase] 1 actuation NS BID #1 bottle 10/25/17 Ibuprofen [Motrin Tab] 1 tab PO Q6 PRN #20 tab 10/25/17 Acetaminophen/Butalbital/Caf 1 tab PO Q12 PRN #12 tab 05/31/18 [Fioricet] Acetaminophen [Acetaminophen 8 650 mg PO Q8 PRN #21 tablet.er 06/19/18 Hour] cefTRIAXone [Rocephin] 2 gm IVPB Q24H vial 08/14/18 Magnesium Oxide [Mag-Ox] 400 mg PO BID #30 tab 08/24/18 Meloxicam 7.5 mg PO BID PRN #14 tablet 10/03/18 - Allergies Allergies/Adverse Reactions: Allergies Allergy/AdvReac Type Severity Reaction Status Date / Time No Known Allergies Allergy Verified 01/18/19 00:12 Review of Systems ROS Statement: Except As Marked, All Systems Reviewed And Found Negative Respiratory: Negative for: Shortness of Breath Neurological: Positive for: Other (spasticity) Physical Exam - Reviewed Nursing Documentation Reviewed: Yes Vital Signs Reviewed: Yes - Physical Exam Appears: Positive for: Well, No Acute Distress Head Exam: Positive for: ATRAUMATIC, NORMOCEPHALIC Skin: Positive for: Normal Color, Warm, Dry Eye Exam: Positive for: Normal appearance, EOMI, PERRL Neck: Positive for: Normal, Painless ROM, Supple Cardiovascular/Chest: Positive for: Regular Rate, Rhythm. Negative for: Murmur Respiratory: Positive for: Normal Breath Sounds. Negative for: Respiratory Distress Gastrointestinal/Abdominal: Positive for: Normal Exam, Soft. Negative for: Tenderness Back: Positive for: Normal Inspection. Negative for: L CVA Tenderness, R CVA Tenderness Extremity: Positive for: Normal ROM. 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 Normal white matter tracts of the supratentorial brain. Normal basal ganglia and thalami. Normal brainstem. Normal cerebellum. There is no demonstrated extra-axial, intraparenchymal, or intraventricular hemorrhage. There are no findings of an acute ischemic infarction. Normal calvarium. There is no demonstrated fracture. Normal soft tissue structures. Normal visualized paranasal sinuses. IMPRESSION: Normal unenhanced CT scan of the brain. --Patient is feeling better, no tonic contraction in E.D. --Recommended patient to followup as outpatient with Dr. Keating Scribe Attestation: Documented by Noemy Stein, acting as a scribe for Alfonso Hartley MD. Provider Scribe Attestation: All medical record entries made by the Scribe were at my direction and p ersonally dictated by me. I have reviewed the chart and agree that the record accurately reflects my personal performance of the history, physical exam, medical decision making, and the department course for this patient. I have also personally directed, reviewed, and agree with the discharge instructions and disposition. Disposition - Clinical Impression Clinical Impression: Spasticity - Patient ED Disposition Is Patient to be Admitted: No - Disposition Referrals: Shaik Marinelli MD [Primary Care Provider] - Lasha Keating MD [Medical Doctor] - Disposition: Routine/Home Disposition Time: 02:20 Condition: GOOD Instructions: Muscle Spasms (DC) Forms: [employer] (German)
[2019-01-18 03:31] VITALS: BP 116/76; PULSE 78; RESP 17; TEMP 97.9
--- NOTE | 2019-01-18 10:27 | CT ---
Date of service: 01/18/2019 PROCEDURE: CT HEAD WITHOUT CONTRAST. HISTORY: hx of neuro-lyme disesae, headache COMPARISON: Noncontrast head CT 10/03/2018. TECHNIQUE: Axial computed tomography images were obtained through the head/brain without intravenous contrast. Radiation dose: Total exam DLP = 769.73 mGy-cm. This CT exam was performed using one or more of the following dose reduction techniques: Automated exposure control, adjustment of the mA and/or kV according to patient size, and/or use of iterative reconstruction technique. FINDINGS: HEMORRHAGE: No intracranial hemorrhage. BRAIN: Normal franco-white matter differentiation and density are appreciated throughout the cerebrum and cerebellum with the brainstem appearing unremarkable as well. There is no mass effect. There is no suspicious extra-axial fluid collection and the midline brain anatomy appears diffusely unremarkable. VENTRICLES: Unremarkable. No hydrocephalus. CALVARIUM: Unremarkable. PARANASAL SINUSES: Unremarkable as visualized. No significant inflammatory changes. MASTOID AIR CELLS: Unremarkable as visualized. No inflammatory changes. OTHER FINDINGS: None. IMPRESSION: Stable unremarkable unenhanced head CT as compared prior CT 10/03/2018.
== END 2019-01-18 03:15 | disposition home or self-care (01) ==
LOC: H.ER 00:09
DX: G81.10 Spastic hemiplegia affecting unspecified side (principal); M06.9 Rheumatoid arthritis, unspecified; M81.0 Age-related osteoporosis without current pathological fracture